=== PATIENT | male | born 1955 | race Caucasian/White ===

== ENCOUNTER 2016-02-23 08:50 | Outpatient (CLI) | payer BC | END 2016-02-23 08:51 | disposition home or self-care (01) | DX: I10 Essential (primary) hypertension (principal); Z12.5 Encounter for screening for malignant neoplasm of prostate; I73.9 Peripheral vascular disease, unspecified ==

== ENCOUNTER 2016-02-26 09:02 | Outpatient (CLI) | payer BC | END 2016-02-26 09:03 | disposition home or self-care (01) | DX: R94.5 Abnormal results of liver function studies (principal) ==

== ENCOUNTER 2019-02-23 15:55 | Outpatient (CLI) | payer BC ==
--- NOTE | 2019-02-23 16:56 | XRAY Report ---
Reason: LOW BACK PAIN CHRONIC Procedure Date: 02/23/2019 Accession Number: [id number] / [id number] Procedure: XRN - Lumbar Spine 2 View CPT Code: Final Report FULL RESULT: EXAM: LUMBOSACRAL SPINE RADIOGRAPHY EXAM DATE: 02/23/2019 04:12 PM. CLINICAL HISTORY: LOW BACK PAIN CHRONIC. COMPARISONS: None. TECHNIQUE: 3 views. FINDINGS: Alignment: Normal. No spondylolisthesis or scoliosis. Bones: Five [id number] lumbar vertebral bodies are present. No fractures or bone lesions. Disks: L1-L2 osteophyte. L2-L3 osteophyte, subchondral sclerosis, disk space narrowing and vacuum disk phenomena. 3 L4, L4-L5 osteophyte L5-S1 osteophyte, subchondral sclerosis, disk space narrowing and vacuum disk phenomena. Facets: L5-S1 facet arthropathy Sacroiliac Joints: Unremarkable. Soft Tissues: Vascular calcifications. The visualized bowel gas pattern is normal. IMPRESSION: Moderate to severe degenerative changes RADIA
== END 2019-02-23 15:56 | disposition home or self-care (01) ==
LOC: DI.N 15:55
PROVIDERS: ATTEND Family Medicine
DX: M47.817 Spondylosis without myelopathy or radiculopathy, lumbosacral region (principal); M51.36 Other intervertebral disc degeneration, lumbar region; M51.37 Other intervertebral disc degeneration, lumbosacral region
CPT/HCPCS: 72100

== ENCOUNTER → 2019-10-19 | Outpatient (CLI) | payer BC, OTHER ==
[2019-10-19 18:20] LABS: BASOPHILS # (AUTO) 0.1 10^3/uL (0.0-0.1); BASOPHILS % (AUTO) 1.1 %; EOSINOPHILS # (AUTO) 0.2 10^3/uL (0.0-0.7); EOSINOPHILS % (AUTO) 2.3 %; HGB - HEMOGLOBIN 13.2 g/dL (14.0-18.0); LYMPHOCYTES # (AUTO) 1.1 10^3/uL (1.5-3.5); LYMPHOCYTES % (AUTO) 13.5 %; MEAN CORPUSCULAR HEMOGLOBIN 30.8 pg (27.0-31.0); MEAN CORPUSCULAR VOLUME 96.3 fL (80.0-94.0); MEAN PLATELET VOLUME 11.4 fL (7.4-11.4); MONOCYTES # (AUTO) 0.8 10^3/uL (0.0-1.0); MONOCYTES % (AUTO) 10.2 %; NEUTROPHILS % (AUTO) 72.5 %; PLT - PLATELET COUNT 358 10^3/uL (130-450); RED BLOOD COUNT 4.28 10^6/uL (4.70-6.10); RED CELL DISTRIBUTION WIDTH 14.2 % (12.0-15.0); WHITE BLOOD COUNT 8.2 x10^3/uL (4.8-10.8)
[2019-10-19 19:06] LABS: ALBUMIN 3.2 g/dL (3.2-5.5); ALBUMIN/GLOBULIN RATIO 0.9 (1.0-2.2); ALKALINE PHOSPHATASE 107 IU/L (42-121); ALT ALANINE AMINOTRANSFERASE 75 IU/L (10-60); AST ASPARTATE AMINOTRANSFERASE 80 IU/L (10-42); BILIRUBIN,TOTAL 0.5 mg/dL (0.2-1.0); BUN - BLOOD UREA NITROGEN < 5 mg/dL (6-20); CARBON DIOXIDE - CO2 23 mmol/L (21-32); CHLORIDE 95 mmol/L (101-111); CHOL/HDL RATIO 1.6 (<5.0); CHOLESTEROL 121 mg/dL; CREATININE 0.5 mg/dL (0.6-1.2); GLUCOSE 150 mg/dL (70-100); HDL CHOLESTEROL 77 mg/dL; LDL CHOLESTEROL,CALCULATED 35 mg/dL; LDL/HDL RATIO 0.5 (<3.6); SODIUM 126 mmol/L (135-145); TOTAL PROTEIN 6.8 g/dL (6.7-8.2); VLDL CHOLESTEROL 9 mg/dL
== END ==
LOC: LAB.WCP 08:00
PROVIDERS: ATTEND Family Medicine
DX: E78.5 Hyperlipidemia, unspecified (principal); Z12.5 Encounter for screening for malignant neoplasm of prostate; I10 Essential (primary) hypertension
CPT/HCPCS: 36415; 80053; 80061; 83721; 84153; 84443; 85025

== ENCOUNTER 2020-09-11 11:31 | Outpatient (CLI) | payer BC, OTHER ==
[2020-09-11 18:11] LABS: ALBUMIN 2.3 g/dL (3.2-5.5); ALBUMIN/GLOBULIN RATIO 0.5 (1.0-2.2); BILIRUBIN,TOTAL 0.3 mg/dL (0.2-1.0); CREATININE 0.6 mg/dL (0.6-1.2); TOTAL PROTEIN 6.6 g/dL (6.7-8.2)
[2020-09-11 18:37] LABS: CALCIUM 8.8 mg/dL (8.5-10.3); POTASSIUM 4.1 mmol/L (3.5-5.0)
[2020-09-11 19:01] LABS: BASOPHILS # (AUTO) 0.1 10^3/uL (0.0-0.1); BASOPHILS % (AUTO) 1.1 %; EOSINOPHILS # (AUTO) 0.2 10^3/uL (0.0-0.7); EOSINOPHILS % (AUTO) 2.7 %; HCT - HEMATOCRIT 26.4 % (42.0-52.0); LYMPHOCYTES # (AUTO) 0.4 10^3/uL (1.5-3.5); LYMPHOCYTES % (AUTO) 4.7 %; MEAN CORPUSCULAR HGB CONC 30.3 g/dL (32.0-36.0); MEAN CORPUSCULAR VOLUME 92.3 fL (80.0-94.0); MEAN PLATELET VOLUME 9.6 fL (7.4-11.4); MONOCYTES % (AUTO) 11.4 %; NEUTROPHILS % (AUTO) 79.4 %; RED BLOOD COUNT 2.86 10^6/uL (4.70-6.10); RED CELL DISTRIBUTION WIDTH 15.4 % (12.0-15.0); WHITE BLOOD COUNT 8.9 x10^3/uL (4.8-10.8)
[2020-09-11 19:10] LABS: PLT - PLATELET COUNT 802 10^3/uL (130-450)
[2020-09-11 19:30] LABS: PLATELET ESTIMATE, MANUAL INCREASED (>450,000) (NORMAL); PLATELET MORPHOLOGY NORMAL APPEARANCE (NORMAL)
== END 2020-09-11 11:32 | disposition home or self-care (01) ==
LOC: LAB.N 11:31
PROVIDERS: ATTEND Physician Assistant Medical
DX: J44.9 Chronic obstructive pulmonary disease, unspecified (principal)
CPT/HCPCS: 36415; 80053; 85025

== ENCOUNTER 2020-09-12 16:23 | Outpatient (CLI) | payer BC, OTHER ==
--- NOTE | 2020-09-12 17:00 | XRAY Report ---
PROCEDURE: Chest 2 View X-Ray INDICATIONS: COPD TECHNIQUE: 2 view(s) of the chest. COMPARISON: None. FINDINGS: Surgical changes and devices: None. Lungs and pleura: No pleural effusions or pneumothorax. Lungs are abnormal with an interstitial pro minence present bilaterally, chronicity uncertain.. Mediastinum: Mediastinal contours are normal. Heart size is normal. Bones and chest wall: No suspicious bony abnormalities. Soft tissues appear unremarkable. IMPRESSION: Comparison chest plain films are not available for review. The interstitial pattern prom inence within the lungs bilaterally, perhaps slightly greater on the right than the left, could be re lated to prior chronic lung disease but opportunistic infection and atypical/viral pneumonia remains a potential cause. Reviewed by: Eliu Cabrera MD on 09/12/2020 4:58 PM PDT Approved by: Eliu Cabrera MD on 09/12/2020 4:58 PM PDT Station ID: [id number]
== END 2020-09-12 16:24 | disposition home or self-care (01) ==
LOC: DI.N 16:23
PROVIDERS: ATTEND Physician Assistant Medical
DX: R91.8 Other nonspecific abnormal finding of lung field (principal)

== ENCOUNTER 2020-10-17 11:55 | Outpatient (CLI) | payer BC ==
--- NOTE | 2020-10-17 12:32 | XRAY Report ---
PROCEDURE: Chest 2 View X-Ray INDICATIONS: SUSPECT RIGHT SIDE INFILTRATE TECHNIQUE: 2 view(s) of the chest. COMPARISON: CT lung biopsy 10/17/2020 FINDINGS: Surgical changes and devices: None. Lungs and pleura: No definitive pneumothorax is identified. Chronic interstitial changes are present. Mediastinum: Mediastinal contours are normal. Heart size is normal. Bones and chest wall: No suspicious bony abnormalities. Soft tissues appear unremarkable. IMPRESSION: 1. No definitive pneumothorax. It is noted a very trace pneumothorax was noted on CT at conclusion of lung biopsy. Reviewed by: Valentina Shi MD on 10/17/2020 12:30 PM PDT Approved by: Valentina Shi MD on 10/17/2020 12:30 PM PDT Station ID: [id number]
== END 2020-10-17 11:56 | disposition home or self-care (01) ==
LOC: DI.N 11:55
PROVIDERS: ATTEND Family Medicine
DX: C44.92 Squamous cell carcinoma of skin, unspecified (principal); R06.00 Dyspnea, unspecified

== ENCOUNTER 2020-10-22 07:22 | Day surgery (SDC) | payer BC ==
[~2020-10-22 07:22] MED LIST: CEFAZOLIN SODIUM IN 0.9 % NACL 2 GM/100 ML BAG IV ONE
[2020-10-22] MEDS ORDERED: BUPIVACAINE 0.25% PF 30 ML VIAL ONE (07:33)
[2020-10-22] MEDS ORDERED: LACTATED RINGERS 1,000 ML IV ONE ×2 (07:48→11:29)
--- NOTE | 2020-10-22 08:32 | ANESTHESIA ---
Pre-Anesthesia VS, & Labs - Diagnosis metastatic squamous cell cancer - Procedure port placement Vital Signs: Temp Pulse Resp BP Pulse Ox 36.5 C 113 H 18 141/84 H 98 10/22/20 07:54 10/22/20 07:54 10/22/20 07:54 10/22/20 07:54 10/22/20 07:54 Height: 6 ft 1 in Weight (kg): 66.4 kg Body Mass Index: 19.3 BMI Classification: Healthy weight - NPO >8 hours Home Medications and Allergies Home Medications: Ambulatory Orders predniSONE [Deltasone] 3 tab ORAL DAILY 10/22/20 Aspirin Chewable [[place] Aspirin] 1 tab PO DAILY 10/08/20 Atorvastatin [Lipitor] 40 mg PO DAILY PM 10/08/20 Losartan [Cozaar] 25 mg PO DAILY 10/08/20 Metoprolol Succinate [Toprol Xl] 25 mg PO DAILY 10/08/20 Ticagrelor [Brilinta] 90 mg PO BID 10/08/20 predniSONE [Deltasone] 3 tab ORAL DAILY 10/22/20 Allergies/Adverse Reactions: Allergies Allergy/AdvReac Type Severity Reaction Status Date / Time No Known Drug Allergies Allergy Verified 10/16/20 12:25 Anes History & Medical History - Anesthetic History Anesthesia Complications: reports: No previous complications - Medical History Cardiovascular: reports: Hypertension, High cholesterol, Coronary artery disease, Peripheral Vascular Disease, Angina, Other (Stent placement July 2020) Pulmonary: reports: COPD, Shortness of breath Gastrointestinal: reports: None Urinary: reports: None Neuro: reports: None Musculoskeletal: reports: Chronic back pain Endocrine/Autoimmune: reports: None Blood Disorders: reports: None Skin: reports: None Smoking Status: Current every day smoker Psychosocial: reports: Alcohol (drinks 6 beer daily) History of Cancer?: Yes - Surgical History Cardiothoracic: reports: Coronary stent, Cardiac catheterization, Fempop bypass Orthopedic: reports: Other Exam General: Alert, Oriented x3, Cooperative, No acute distress Dental: Poor dentition Mouth Openin Fingerbreadth Neck Mobility: Normal Mallampati classification: II Thyromental Distance: 4-6 cm Respiratory: Decreased breath sounds (on right), Wheezing (inspiratory and expiratory Right>Left. Diminished right breath sounds) Cardiovascular: Regular rate, Normal S1, Normal S2, No murmurs Mental/Cognitive Status: Alert/Oriented X3, Normal for patient Plan Anesthesia Type: MAC Consent for Procedure(s) Verified and Reviewed: Yes Code Status: Attempt Resuscitation ASA classification: 4-Incapacitating disease Is this case an emergency?: No
[2020-10-22] MEDS ORDERED: LIDOCAINE 1% 50 ML MDV ONE (10:20)
[2020-10-22] MEDS ORDERED: HYDROCORTISONE SUCCINATE 100 MG/2 ML VIAL ONE (10:20)
[2020-10-22] MEDS ORDERED: MIDAZOLAM 2 MG/2 ML VIAL ONE (10:21)
[2020-10-22] MEDS ORDERED: DEXMEDETOMIDINE 200 MCG/2 ML VIAL ONE (10:25)
--- NOTE | 2020-10-22 10:29 | HISTORY & PHYSICAL EXAMINATION ---
Chief Complaint - Chief Complaint Chief Complaint: cancer History of Present Illness - History Obtained From Records Reviewed: yes History obtained from: pt Exam Limitations: none - History of Present Illness HPI Comment/Other: Recently diagnosed with metastatic cancer. Chemotherapy and port has been recommended History - Past Medical History Cardiovascular: reports: Hypertension, High cholesterol, Coronary artery disease, Peripheral Vascular Disease, Angina, Other (Stent placement July 2020) Respiratory: reports: COPD, Shortness of breath Neuro: reports: None Endocrine/Autoimmune: reports: None GI: reports: None : reports: None HEENT: reports: None Psych: reports: None Musculoskeletal: reports: Chronic back pain Derm: reports: None MRSA Hx?: No - Past Surgical History General: reports: Other Ortho: reports: Other Cardiovascular: reports: Coronary stent, Cardiac catheterization, Fempop bypass Meds/Allgy - Home Medications Home Medications: Ambulatory Orders Medication Instructions Recorded Confirmed Aspirin Chewable [[facility] [place] 1 tab PO DAILY 10/08/20 10/16/20 Aspirin] Atorvastatin [Lipitor] 40 mg PO DAILY PM 10/08/20 10/16/20 Losartan [Cozaar] 25 mg PO DAILY 10/08/20 10/22/20 Metoprolol Succinate [Toprol Xl] 25 mg PO DAILY 10/08/20 10/22/20 Ticagrelor [Brilinta] 90 mg PO BID 10/08/20 10/16/20 Ondansetron HCl [Zofran] 4 mg PO Q6HR PRN #30 tab 10/14/20 10/16/20 Prochlorperazine Maleate 10 mg PO Q6HR PRN #30 tab 10/14/20 10/16/20 [Compazine] dexAMETHasone [Decadron] 8 mg PO UD #18 tablet 10/14/20 10/16/20 predniSONE [Deltasone] 3 tab ORAL DAILY 10/22/20 10/22/20 - Allergies Allergies/Adverse Reactions: Allergies Allergy/AdvReac Type Severity Reaction Status Date / Time No Known Drug Allergies Allergy Verified 10/16/20 12:25 Review of Systems - Other Findings Other Findings: 10 pt ros as above otherwise unremarkable Exam - Vital Signs Reviewed Vital Signs: Yes Vital Signs: Vital Signs x48h Temp Pulse Resp BP Pulse Ox 10/22/20 07:54 36.5 C 113 H 18 141/84 H 98 - Physical Exam General Appearance: positive: No acute distress, Alert Eyes Bilateral: positive: PERRL, EOMI ENT: positive: No signs of dehydration Neck: positive: No JVD Respiratory: positive: No respiratory distress, Other (diminished) Cardiovascular: positive: Regular rate & rhythm Abdomen: positive: No distention Neurologic/Psychiatric: positive: Oriented x3 Conclusion/Plan - Problem List (1) Metastatic squamous cell carcinoma Conclusion/Plan: Plan port placement. parq held and consent obtained
[2020-10-22] MEDS ORDERED: LIDOCAINE 1% 50 ML MDV SUBQ ONE ×2 (10:58)
[2020-10-22] MEDS ORDERED: BUPIVACAINE 0.25% PF 30 ML VIAL SUBQ ONE ×2 (10:58)
[2020-10-22] MEDS ORDERED: fentaNYL 100 MCG/2 ML VIAL ONE (11:04)
[2020-10-22] MEDS ORDERED: HYDROcod/ACETAM 5/325 MG TABLET PO PRN (11:26)
--- NOTE | 2020-10-22 11:32 | OPERATIVE REPORT ---
Operative Report - General Procedure Date: 10/22/20 Planned Procedure: left subclavian power port placement Pre-Op Diagnosis: metastatic squamous cell carcinoma Procedure Performed: left subclavian power port placement Post Op Diagnosis: same - Procedure Note Primary Surgeon: anca tay Anesthesia Technique: Local, MAC Estimated Blood Loss (mL): 5 Drain/Tube Type: Other (none) Indications: need for chemotherapy Findings: good placement with tip at top of heart. good flush and flow Complications: none - Other Other Information/Narrative: The patient was properly identified brought to the operating room and placed in supine position. Monitored anesthesia care was given as well as IV sedation. A towel roll was placed under the upper back. The patient was prepped and draped in a sterile fashion and given preoperative antibiotics. Local anesthetic was given. The left subclavian vein was easily accessed first pass with a needle. Guide wire placed and position confirmed. A subcutaneous pocket on the left upper chest was created measuring approximately 2-1/2 cm. Portacatheter tubing was then placed subcutaneous up to the venous access point. The portacatheter tubing was then easily placed with the use of a dilator peel-away sheath. The tubing was aspirated and flushed with saline. Under fluoroscopic guidance the tubing was pulled back to the junction of the atrium and the superior vena cava. The portacatheter aspirated and flushed easily assuring good position. The portacatheter was then cut to size and further assembled. The port was secured to subcutaneous tissue with 2 interrupted 4-0 Prolene sutures. The port again was aspirated and flushed now with heparin. Buried interrupted subdermal 3-0 Vicryl sutures were then placed. Skin was closed with buried interrupted and running 4-0 Monocryl subcuticular suture. Dressing was applied. The patient tolerated the procedure well was awakened and brought to recovery in good condition.
[2020-10-22 12:09] VITALS: BP 110/53
--- NOTE | 2020-10-22 13:57 | XRAY Report ---
PROCEDURE: OR Port-A-Cath INDICATIONS: PORT PLACEMENT TECHNIQUE: Single intraoperative spot fluoroscopic image of the chest. COMPARISON: Chest radiographs 10/17/2020 FINDINGS: A single intraoperative spot fluoroscopic image demonstrates a left-sided central venous catheter wit h catheter tip projecting over the superior cavoatrial junction. Atherosclerotic calcifications are s een in the aorta. IMPRESSION: Left-sided central venous catheter is seen with tip projecting over the superior cavoatrial junction. Reviewed by: Omi Denny MD on 10/22/2020 1:55 PM PDT Approved by: Omi Denny MD on 10/22/2020 1:55 PM PDT Station ID: [id number]
--- NOTE | 2020-10-22 16:35 | ANESTHESIA POST OP EVALUATION ---
Anesthesia Post Eval - Post Anesthesia Eval Vitals: Last Vital Signs Temp 36.5 C 10/22/20 12:08 Pulse 93 10/22/20 12:08 Resp 16 10/22/20 12:08 BP 110/53 L 10/22/20 12:08 Pulse Ox 93 10/22/20 12:08 CV Function Including HR & BP: Stable Pain Control: Satisfactory Nausea & Vomiting: Negative Mental Status: Baseline Respiratory Status: Airway Patent Hydration Status: Satisfactory Anesthesia Complications: None
== END 2020-10-22 07:23 | disposition home or self-care (01) ==
LOC: SDS 07:22
PROVIDERS: ATTEND Surgery
DX: C44.92 Squamous cell carcinoma of skin, unspecified (principal); J44.9 Chronic obstructive pulmonary disease, unspecified; Z95.5 Presence of coronary angioplasty implant and graft; I25.10 Atherosclerotic heart disease of native coronary artery without angina pectoris; I73.9 Peripheral vascular disease, unspecified; Z20.822 Contact with and (suspected) exposure to COVID-19; F17.200 Nicotine dependence, unspecified, uncomplicated
CPT/HCPCS: 36561; 87635; C1788; J0690; J7120

== ENCOUNTER 2020-11-05 11:05 | Outpatient (CLI) | payer BC, OTHER ==
--- NOTE | 2020-11-05 17:29 | CONSULTATION NOTE ---
Palliative Care Consultation - Referral Referring Provider: Dr. 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 He finally had to retire secondary to concern for safety issues. He has not had much medical care up to this point in time, and started for work-up. Unfortunately he was found to need a cardiac stent placement in his work-up, before he could move forward with his femoral endarterectomy on 08/2020. During his operation he had suspicious lymphadenopathy which was biopsied and found to be positive for squamous cell carcinoma and subsequent work-up he had a PET scan and 09/15/2020 with noted most likely distal esophageal primary, in addition to lung findings suspicious for lymphangitic spread in lungs as well as retroperitoneal lymphadenopathy. Patient has since diagnosis had increased shortness of breath, he has been on steroids in the context of this, with some relief. He does not have a cough, but limited activity tolerance. He does have abdominal fullness and tenderness, early satiety, denies difficulty with swallowing. Patient denies pain other than mild stomach discomfort. He does understand the seriousness of his illness, and that treatment is palliative in nature. He has received his first round of FOLFOX starting 10/23. Unfortunately today he presents with the hemoglobin of 7.0 and hematocrit 23.1. With suspicion for possible bleeding from tumor site. He is on Brilinta secondary to stent placement. Patient does have anxiety, intermittent constipation, and low activity tolerance. Patient continues to smoke about a pack a day, reports this is actually down from 3 packs. He continues to drink about a sixpack of beer daily. On examination his breath sounds are diminished throughout, no wheezes, his O2 sats are 99% at rest. He does have some abdominal distention tender to palpation. He has well-healed surgical scar R mid abdominal, his groin incisions does have some firmness and scar tissue swelling at the sites. He does have mild tenderness with this. Patient has minimal social support, he is been in contact with one of his brothers, his ex-girlfriend Delia has been providing support and transportation, and he is living with a friend Amanda. He is due to transition to Medicare, and is concerned about insurance issues. Palliative care introduced regarding providing support for symptom management, anticipatory guidance, and advanced care planning.Will introduce secondary social studies teacher for resources support as well. Medical/Surgical History - Past Medical History Cardiovascular: reports: Hypertension, High cholesterol, Coronary artery dise ase, Peripheral Vascular Disease, Angina Respiratory: reports: COPD, Shortness of breath Neuro: None Endocrine/Autoimmune: reports: None GI: reports: GERD : reports: None HEENT: reports: None Psych: reports: Anxiety Musculoskeletal: reports: Chronic back pain Derm: reports: None MRSA Hx?: No - Past Surgical History General: reports: Other (portacath placed 11/04) Ortho: reports: Other Cardiovascular: reports: Coronary stent, Cardiac catheterization, Fempop bypass - Substance History Use: Uses substance without health or social issues: Tobacco (smokes 1 pack a day down from 1-2), Alcohol (drinks a 6 pack beer daily), Cocaine (hx) Social History - Living Situation Living arrangement: Other Living Situation: With friend(s) Support System: [place], does have friends in the area. Currently is staying with Amanda, and being supported by Delia and ex-girlfriend. Will need more concrete care plan for long-term planning, short-term may be experiencing some transportation issues. Will enlist help of palliative care secondary social studies teacher to work alongside with palliative care team. Was in the [employer] 3 years when young Family History - Family History Family History: Mother: , Mental Illness (suicide), Father: , Alcoholism, Cancer (possible not sure), Sister: Alive and Well (2 sisters 2 brothers one with ALS), Brother: Alive and Well Medications/Allergies - Medications Home Medications: Ambulatory Orders Medication Instructions Recorded Confirmed Aspirin Chewable [[facility] 1 tab PO DAILY 10/08/20 11/05/20 Aspirin] Atorvastatin [Lipitor] 40 mg PO DAILY PM 10/08/20 11/05/20 Losartan [Cozaar] 25 mg PO DAILY 10/08/20 11/05/20 Metoprolol Succinate [Toprol Xl] 25 mg PO DAILY 10/08/20 11/05/20 Ticagrelor [Brilinta] 90 mg PO BID 10/08/20 11/05/20 Ondansetron HCl [Zofran] 4 mg PO Q6HR PRN #30 tab 10/14/20 10/16/20 Prochlorperazine Maleate 10 mg PO Q6HR PRN #30 tab 10/14/20 10/16/20 [Compazine] dexAMETHasone [Decadron] 8 mg PO UD #18 tablet 10/14/20 10/16/20 HYDROcod/ACETAM 5/325 [[place] 5/325] 1 each PO Q6H PRN #30 tablet 10/22/20 11/05/20 predniSONE [Deltasone] 3 tab ORAL DAILY 10/22/20 11/05/20 - Allergies Allergies/Adverse Reactions: Allergies Allergy/AdvReac Type Severity Reaction Status Date / Time No Known Drug Allergies Allergy Verified 10/16/20 12:25 Review of Systems - Constitutional Constitutional: reports: Fatigue, Weakness, Poor appetite, Weight loss (68 kg; reports always thin but usually 165). denies: Fever, Chills - Cardiovascular Cardiovascular: reports: Palpitations, Exertional dyspnea, Decr. exercise tolerance - Respiratory Respiratory: reports: SOB at rest, SOB with exertion - Gastrointestinal Gastrointestinal: reports: Constipation, Reflux/heartburn, Bloating, Poor appetite, Early satiety. denies: Nausea - Musculoskeletal Musculoskeletal: reports: Back pain, Muscle aches, Stiffness, Muscle weakness - Integumentary Integumentary: reports: Dryness - Neurological Neurological: reports: General weakness - Psychiatric Psychiatric: reports: Anxiety. denies: Depression - Hematologic/Lymphatic Hematologic/Lymph: reports: Anemia (getting iron transfusion; 2 units [facility] tomorrow) - All Other Systems All Other Systems: reports: Reviewed and negative Physical Exam - Vital Signs Pulse Rate: 100 Respiratory Rate: 20 O2 Saturation: 99 Blood Pressure: 128/77 - Physical Exam General Appearance: positive: No acute distress, Alert, Anxious Eyes Bilateral: positive: Normal inspection ENT: positive: Other (mask on) Neck: positive: Trachea midline Cardiovascular: positive: Regular rate & rhythm Respiratory: positive: Diminished throughout. 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 He has only been able to walk a few feet before getting winded. He has not driven for a couple months now, as he is worried about ability to manage. He reports bathing is quite onerous, he eats takeout or friend fix or brings meals. Patient is quite sedentary, and reports feeling quite bored. - Palliative Care Discussion: Patient does understand the seriousness of his illness, he is hoping both for quality and quantity of time. He does seem to understand the complexity of his situation, though will need to explore further patient's medication adherence. Patient has minimal community support, does report he has spoken to his brother about his diagnosis. Introduced the need for DURABLE P[employer] PREPARATION SUPERVISOR for healthcare, particularly in the context of his health history and concern for complications or sequela. Provided simple DPOA H form. Patient's short-term goals, are to see how he responds to treatment, he is hoping to feel somewhat better and be more active. He is quite sedentary and "bored" given his previous lifestyle. Patient is quite reflective he reports "we will sometime", and actually is surprised he is still here given his lifestyle previously, he reports he thought he was going to be get 35 years ago so is pleasantly surprised. Results - Lab Results Lab results reviewed: Yes Impression and Recommendations - Palliative Care Impression: This is a 64-year-old gentleman who has been diagnosed with his squamous cell carcinoma metastatic disease likely esophageal primary. He has started his FOLFOX 10/23/20 with delay today of a week, presents today with acute anemia, fatigue, anorexia, and breathlessness. Patient does have underlying anxiety, I have concern for social support for long-term planning, but is quite open to working with palliative care for both short-term and long-term goals. Palliative care to provide support for symptom management and advanced care planning. Recommendations/Counseling Done: 1. Anemia. This is multifactorial, also concerned about bleeding. Patient does have some abdominal discomfort, will go ahead and start him on some omeprazole 40 mg daily in the a.m., with possibility to consider Carafate in the future as well. Oncology note has him being referred possibly for radiation for control of bleeding. They will continue to be monitoring. 2. Weight loss. Patient has fluctuating anorexia, as well as symptoms of early satiety and abdominal discomfort. Denies any nausea. Patient has initiated daily Ensure, encouraged to increase to 2 times a day. 3. Constipation. Patient experiencing intermittent constipation, with increased abdominal discomfort. Counseling provided and encouraged to do MiraLAX half capful daily with the goal to have a daily soft BM. 4. Anxiety. Discussed with patient's long-term feelings of anxiety, patient with situational anxiety and depression. We did discuss possible medication to help, currently would like to hold off. Will make a referral to medical palliative care secondary social studies teacher for evaluation and screening for anxiety/depression and resources. 5. Dyspnea. This is multifactorial, patient has documented lymphangitic spread in the lungs, long-term and continuous smoker, hemoglobin of 7.0. We will continue to monitor, patient reports he is currently taking increased steroids for this, with some relief. Counseling provided regarding the role of his current counts on his experience with dyspnea, hopefully will feel better after transfusion tomorrow. 6. Advanced care planning. Initiated conversation regarding patient's short and long-term goals. Patient does understand the seriousness of his illness, has minimal social support and concerns for resource management. Introduced the need for DPOA and provided simple form, will continue to work with patient on advanced care planning and long-term goals. 60 Review of oncology notes, labs, scans, [id number] for counseling for symptom management and introduction advanced care planning. Palliative care to follow alongside patient for symptom management goals of care and anticipatory guidance.
== END 2020-11-05 11:06 | disposition home or self-care (01) ==
LOC: PC 11:05
PROVIDERS: ATTEND Nurse Practitioner Adult Health
DX: Z51.5 Encounter for palliative care (principal); D63.0 Anemia in neoplastic disease; R06.02 Shortness of breath; R63.4 Abnormal weight loss; R53.83 Other fatigue; R63.0 Anorexia; R68.81 Early satiety; K59.00 Constipation, unspecified; F41.9 Anxiety disorder, unspecified; F32.9 Major depressive disorder, single episode, unspecified; R10.9 Unspecified abdominal pain; R14.0 Abdominal distension (gaseous); I10 Essential (primary) hypertension; I25.119 Atherosclerotic heart disease of native coronary artery with unspecified angina pectoris; I73.9 Peripheral vascular disease, unspecified; F17.210 Nicotine dependence, cigarettes, uncomplicated; J44.9 Chronic obstructive pulmonary disease, unspecified; C78.02 Secondary malignant neoplasm of left lung; C78.01 Secondary malignant neoplasm of right lung; C80.1 Malignant (primary) neoplasm, unspecified; Z79.52 Long term (current) use of systemic steroids; Z79.899 Other long term (current) drug therapy; Z95.828 Presence of other vascular implants and grafts; Z95.5 Presence of coronary angioplasty implant and graft; Z72.89 Other problems related to lifestyle; Z60.8 Other problems related to social environment
CPT/HCPCS: 99205

== ENCOUNTER 2020-11-14 15:04 | Outpatient (CLI) | payer BC, OTHER ==
--- NOTE | 2020-11-14 17:19 | CONSULTATION NOTE ---
Palliative Care Follow Up - Referral Referring Provider: Dr. Omi Baltazar Time of Visit: 1520 30 Referral setting: [facility] – [place] Referral Reason: Abdominal Pain/FTT/SCC of Esophagus/Goals of Care - Information Sources Records reviewed: Previous records reviewed History/Review of Systems obtained from: Patient Exam limitations: Clinical condition (patient tangential; difficulty retaining info) - History of Present Illness Update Brief HPI Update: Please see consult 11/05 for more complete HPI. This is a 64-year-old gentleman who has a recent diagnosis squamous cell carcinoma of the esophagus, reports he has worsening pain in his epigastric area, before and after eating, that radiates through to the back. He reports his most significant relief is actually when he is taking the dexamethasone and/or prednisone. He has early satiety, abdominal fullness and tenderness, but denies any difficulty with swallowing. He is just having difficulty eating as he is feeling poorly. He reports he continues to struggle with constipation, has had no trouble with diarrhea despite his FOLFOX. He is here to have his 5-FU removed. He does have high anxiety, low activity tolerance, continues to smoke about a pack a day. He does report his intake of beer which is usually minimum a sixpack has decreased dramatically, and is doing better with protein drinks. He had started the omeprazole, has seen the social work job titles but does admit he has difficulty tracking will need to meet with Delia. Patient is feeling quite overwhelmed with his ongoing failure to thrive. Past Medical History: Hypertension, high cholesterol, CAD, peripheral vascular disease, angina, COPD, GERD, anxiety, chronic back pain, coronary stent placement, cardiac catheterization, femoropopliteal bypass Social History - Living Situation Living arrangement: Other Living Situation: With friend(s) Support System: Patient has been at [facility] for 26 years, does have friends in the area. Currently staying with Amanda who is connected through an old girlfriend, and is being supported by Delia whom he does not live with and is an ex-girlfriend. He is going to need a more concrete plan for long-term planning, and short-term is experiencing some transportation issues. Patient was in the [employer] 3 years when he was young. He is coming up on at a care age, and will need assistance transitioning. Medications/Allergies - Medications Home Medications: Ambulatory Orders Medication Instructions Recorded Confirmed Aspirin Chewable [[place] 1 tab PO DAILY 10/08/20 11/14/20 Aspirin] Atorvastatin [Lipitor] 40 mg PO DAILY PM 10/08/20 11/14/20 Losartan [Cozaar] 25 mg PO DAILY 10/08/20 11/14/20 Metoprolol Succinate [Toprol Xl] 25 mg PO DAILY 10/08/20 11/14/20 Ticagrelor [Brilinta] 90 mg PO BID 10/08/20 11/14/20 Ondansetron HCl [Zofran] 4 mg PO Q6HR PRN #30 tab 10/14/20 11/14/20 Prochlorperazine Maleate 10 mg PO Q6HR PRN #30 tab 10/14/20 11/14/20 [Compazine] HYDROcod/ACETAM 5/325 [[place] 5/325] 1 each PO Q6H PRN #30 tablet 10/22/20 11/14/20 Omeprazole 40 mg PO BID MDD x 1 week; then 11/14/20 11/14/20 daily dexAMETHasone [Decadron] 4 mg PO DAILY 11/14/20 11/14/20 - Allergies Allergies/Adverse Reactions: Allergies Allergy/AdvReac Type Severity Reaction Status Date / Time No Known Drug Allergies Allergy Verified 10/16/20 12:25 Review of Systems - Constitutional Constitutional: reports: Fatigue (worsening), Weakness, Poor appetite, Weight loss (68 kg; reports always thin but usually 165). denies: Fever, Chills - Eyes Eyes: reports: Vision loss - Ears, Nose & Throat Ears, Nose & Throat: reports: Dry mouth. denies: Mouth lesions - Cardiovascular Cardiovascular: reports: Palpitations, Exertional dyspnea, Decr. exercise tolerance - Respiratory Respiratory: reports: SOB at rest, SOB with exertion - Gastrointestinal Gastrointestinal: reports: Constipation (hard stool yesterday), Reflux/heartburn, Bloating, Poor appetite, Early satiety. denies: Nausea - Musculoskeletal Musculoskeletal: reports: Back pain, Muscle aches, Stiffness, Muscle weakness - Integumentary Integumentary: reports: Dryness - Neurological Neurological: reports: General weakness - Psychiatric Psychiatric: reports: Anxiety. denies: Depression - Hematologic/Lymphatic Hematologic/Lymph: reports: Anemia (up to 10.9) - All Other Systems All Other Systems: reports: Reviewed and negative Physical Exam - Physical Exam General Appearance: positive: No acute distress, Alert, Anxious Eyes Bilateral: positive: Normal inspection ENT: positive: Other (mask on) Neck: positive: Trachea midline Cardiovascular: positive: Regular rate & rhythm Respiratory: positive: No respiratory distress Abdomen: positive: Tenderness, Distended Skin: positive: Dryness, Other (scars healed) Extremities: positive: No pedal edema Neurologic/Psychiatric: positive: Oriented x3, Mood/affect nml, Flat affect Palliative Care - POLST Patient has POLST: No POLST Status: Full Code Pain: Pain worsening, Location (mid abdominal; unclear what helps), Severity (04/23 occ use of hydrocodone; avg about one daily; felt best on sterioids) Tiredness/Fatigue: Moderate (4-6) Nausea: None Dyspnea: Mild (1-3) Depression: Mild (1-3) Anxiety: Moderate (4-6) Feelings of wellbeing/Perceived Quality of Life: Poor, Worsening Sleep: Sleeps poorly Constipation: Yes, Unmanaged Performance Status: Patient taking just short naps, only able to sleep 2 to 3 hours at a time. Is finding all of this somewhat overwhelming. He is also not used to being bored. Currently is able to manage his ADLs, but is only able to ambulate short distances. - Palliative Care Discussion: Patient does admit to being overwhelmed, is feeling somewhat stressed to co ntinues to have high symptom burden, and difficulty eating. He did meet with the palliative medical grade shoemaker yesterday, reports that it was very difficult and most likely be more beneficial if they had there. He does admit to having difficulty following the conversation and absorbing information. I did speak to Delia quickly on the phone, with a reminder to both of them I do write down the instructions for any medication changes. Patient does need to pick a DPOA, has not followed through though this was revisited yesterday. 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 He is on FOLFOX, which was delayed because of acute anemia, he did receive iron transfusions and 2 units packed red blood cells with improvement of both hemoglobin and symptom burden. Patient does have underlying anxiety, Worsening abdominal pain, and is feeling overwhelmed. Palliative care to provide support for symptom management advance care planning. Recommendations/Counseling Done: 1. Abdominal pain. Suspect this is multifactorial, including related to tumor, he perceives it most relief came from the dexamethasone. We will go ahead given his poor appetite, dyspnea, and pain will continue dexamethasone 4 mg for the short-term. He does have hydrocodone 5 mg / 325 mg, does not perceive this provides much relief. We will go ahead and increase the omeprazole to twice daily for 1 week. Patient may benefit from Carafate, if patient's hemoglobin drops may also need to stop blood thinner. 2. Constipation. Patient continues with intermittent constipation, instructed to take a full capful of MiraLAX or twice daily. With the goal for soft daily BM suspect this is adding to his abdominal discomfort. 3. Anxiety. Patient does have long standing anxiety, now complicated by situational anxiety and depression. Would like to offer him some sertraline, at this point in time he would like to wait for further medications. 4. Dyspnea. 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 We will continue to monitor. 5. Advanced care planning. Patient continues with feeling of overwhelm, has met with medical palliative care social work job titles who is assisting with connecting with [facility] for Medicare. Patient has been encouraged to decide around DPOA, and will continue to work with patient advance care planning and long-term goals. 30 minutes [place] view of chart, oncology notes, [id number] with patient, counseling regarding symptom management and anticipatory guidance.
== END 2020-11-14 15:05 | disposition home or self-care (01) ==
LOC: PC 15:04
PROVIDERS: ATTEND Nurse Practitioner Adult Health
DX: Z51.5 Encounter for palliative care (principal); C15.9 Malignant neoplasm of esophagus, unspecified; R10.13 Epigastric pain; R06.00 Dyspnea, unspecified; G89.29 Other chronic pain; M54.9 Dorsalgia, unspecified; K21.9 Gastro-esophageal reflux disease without esophagitis; F41.9 Anxiety disorder, unspecified; K59.00 Constipation, unspecified; R19.7 Diarrhea, unspecified; D64.9 Anemia, unspecified; F17.200 Nicotine dependence, unspecified, uncomplicated; Z79.82 Long term (current) use of aspirin; Z79.899 Other long term (current) drug therapy
CPT/HCPCS: 99214

== ENCOUNTER 2020-11-24 20:30 | Outpatient (CLI) | payer BC ==
--- NOTE | 2020-11-25 08:27 | Ultrasound Report ---
PROCEDURE: Testicle INDICATIONS: SQUAMOUS CELL CA TECHNIQUE: Real-time scanning was performed of the scrotum and testicles, with image documentation. Color and p ulse Doppler interrogation was performed of both testicles. COMPARISON: None. FINDINGS: Right: Testicle is normal in size at 4 x 2.0 x 2.5 cm, and homogenous in echotexture. A few scattere d echogenic foci are noted. Epididymis is normal in overall size and morphology. Mild to moderate hydrocele. No varicocele. Overl isaac scrotal skin is thickened. Left: Testicle is normal in size at 3.2 x 2.4 x 2.1 cm, and homogeneous in echotexture. A few scatt ered echogenic foci are noted. Epididymis is normal in overall size and morphology. Small hydrocele. Moderate varicocele can Jameson ing scrotal skin is thickened. Doppler: Color and pulse Doppler demonstrate normal and symmetric arterial flow in both testicles. IMPRESSION: 1. Bilateral scrotal skin thickening. 2. Bilateral hydroceles as detailed above. 3. Moderate left varicocele. 4. Testicular microlithiasis, which can be asymptomatic and benign. Consider annual sonographic follo w-up based on the patient's risk factors for germ cell tumor. Reviewed by: Anuel Alvarado MD on 11/25/2020 8:25 AM PDT Approved by: Anuel Alvarado MD on 11/25/2020 8:25 AM PDT Station ID: [id number]
--- NOTE | 2020-11-25 08:34 | Ultrasound Report ---
PROCEDURE: Ext Limited Non Vascular INDICATIONS: ?lymphadenopathy @ BL Incision site TECHNIQUE: Real-time scanning was performed of the bilateral inguinal regions, with image documentat ion. COMPARISON: None. FINDINGS: A predominantly hypoechoic lesion is seen in the right inguinal/thigh region, which contai ns anechoic areas and measures 6.9 x 5.7 x 4.2 cm. A prominent lymph node is seen in the right groin, measuring 1.3 cm in short axis. Inferior to the patient's left surgical incision, 2 hypoechoic lesions are seen, measuring up to 2.8 cm. IMPRESSION: 1. Hypoechoic lesion in the right inguinal/thigh region, which may reflect a hematoma. 2. Cystic foci in the left inguinal region, which are nonspecific but may reflect seromas. Reviewed by: Anuel Alvarado MD on 11/25/2020 8:33 AM PDT Approved by: Anuel Alvarado MD on 11/25/2020 8:33 AM PDT Station ID: [id number]
== END 2020-11-24 20:31 | disposition home or self-care (01) ==
LOC: DI 20:30
PROVIDERS: ATTEND Internal Medicine
DX: C80.1 Malignant (primary) neoplasm, unspecified (principal); R93.7 Abnormal findings on diagnostic imaging of other parts of musculoskeletal system

== ENCOUNTER 2020-11-26 09:58 | Outpatient (CLI) | payer BC ==
--- NOTE | 2020-11-26 11:25 | CONSULTATION NOTE ---
Palliative Care Follow Up - Referral Referring Provider: Dr. 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 He had to retire secondary concern for safety, had not had medical care up to this point and started his work-up. He originally had a cardiac stent placement, before he could move forward with his femoral endarterectomy neurectomy on 08/2020. During his operation he has suspicious lymphadenopathy which was biopsied by me positive for squamous cell carcinoma and subsequent work-up scan 09/15/2020 showed distal esophageal as primary, lymphangitic spread in lungs, as well as retroperitoneal lymphadenopathy. Patient presents with ongoing increased scrotal swelling, did have a ultrasound that showed hydroceles and variceal, is scheduled to have a CT of the pelvic ab the men as suspicious that this is causing his symptoms. He is quite uncomfortable with this, though reports he cannot pee and has had some intermittent trouble with frequent hard stools. Patient was seen by palliative care, started conversation, no was checking in as far as the symptom management, and started to get more frustrated and anxious. Patient developed within 15 to 20 minutes inability to complete a full sentence sentence, word finding issues, was not confused. Was quite frustrated with his ability to be able to not talk. This had not happened to him before. This was a new symptom. He denies any headache, his blood pressure was within normal range of 112/67 with a pulse of 113. He did only report some right eye blurring this a.m. 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 Patient is on Brilinta for his stent placement, reports he has taken that as well as his aspirin, is able to confirm he has been compliant with his medications. Given his high risk for stroke/bleed, call and report to emergency physician Dr. Rodriguez, patient will get evaluated. Patient at this point time is still a full code, have been trying to meet with patient and his significant other to establish goals of care. Patient does have some understanding of the seriousness of his illness. He is scheduled to see radiation oncology tomorrow, and was scheduled to get chemo today, but this will be delayed pending outcome of the ED visit.Patient denies any trauma, falls, or any acute headache pain. Past Medical History: Hypertension, high cholesterol, CAD, peripheral vascular disease, angina, COPD GERD, anxiety, chronic back pain, coronary stent placement, cardiac catheterization, femoral-popliteal bypass Social History - Living Situation Living arrangement: Other Living Situation: With friend(s) Support System: Patient does have good friend Delia Mckeon [phone], who is a old girlfriend who does provide support and advocacy for his medical problems. He is currently staying with a friend Amanda who is a connection to an old girlfriend. He is going to need a more concrete plan for long-term planning and short-term is experiencing some transportation issues. Patient was in the [employer] 3 years when he was young, he is coming up on Medicare age and will need some assistance with transitioning. Medications/Allergies - Medications Home Medications: Ambulatory Orders Medication Instructions Recorded Confirmed Aspirin Chewable [[place] 1 tab PO DAILY 10/08/20 11/14/20 Aspirin] Atorvastatin [Lipitor] 40 mg PO DAILY PM 10/08/20 11/14/20 Losartan [Cozaar] 25 mg PO DAILY 10/08/20 11/14/20 Metoprolol Succinate [Toprol Xl] 25 mg PO DAILY 10/08/20 11/14/20 Ticagrelor [Brilinta] 90 mg PO BID 10/08/20 11/14/20 Ondansetron HCl [Zofran] 4 mg PO Q6HR PRN #30 tab 10/14/20 11/14/20 Prochlorperazine Maleate 10 mg PO Q6HR PRN #30 tab 10/14/20 11/14/20 [Compazine] HYDROcod/ACETAM 5/325 [[place] 5/325] 1 each PO Q6H PRN #30 tablet 10/22/20 11/14/20 Omeprazole 40 mg PO BID MDD x 1 week; then 11/14/20 11/14/20 daily dexAMETHasone [Decadron] 4 mg PO DAILY 11/14/20 11/14/20 - Allergies Allergies/Adverse Reactions: Allergies Allergy/AdvReac Type Severity Reaction Status Date / Time No Known Drug Allergies Allergy Verified 11/26/20 11:26 Review of Systems - Constitutional Constitutional: reports: Fatigue, Weakness, Poor appetite, Weight loss. denies: Fever, Chills - Eyes Eyes: reports: Vision loss - Ears, Nose & Throat Ears, Nose & Throat: reports: Dental decay - Cardiovascular Cardiovascular: reports: Palpitations, Exertional dyspnea, Decr. exercise tolerance - Respiratory Respiratory: reports: SOB at rest, SOB with exertion - Gastrointestinal Gastrointestinal: reports: Constipation (hard stool yesterday; not compliant with mirlalax), Reflux/heartburn (better with omeprazole), Bloating, Poor appetite, Early satiety. denies: Nausea - Genitourinary Genitourinary: reports: Frequency, Sexual dysfunction, Other (reports is emptying bladder no problems with urnitating despite scrotal swelling) - Musculoskeletal Musculoskeletal: reports: Back pain, Muscle aches, Stiffness, Muscle weakness - Integumentary Integumentary: reports: Dryness - Neurological Neurological: reports: General weakness - Psychiatric Psychiatric: reports: Anxiety. denies: Depression - Hematologic/Lymphatic Hematologic/Lymph: reports: Anemia (up to 10.2) - All Other Systems All Other Systems: reports: Reviewed and negative Physical Exam - Vital Signs Temperature: 36.9 C Pulse Rate: 113 Blood Pressure: 112/67 - Physical Exam General Appearance: positive: Alert, Moderate distress (escalting with word finding problems), Anxious Eyes Bilateral: positive: Normal inspection ENT: positive: Other (poor dentition) Neck: positive: Trachea midline Cardiovascular: positive: Tachycardia Respiratory: positive: No respiratory distress Abdomen: positive: Tenderness, Distended, Other (scrotal edema/penile swelling) Skin: positive: Dryness, Other (scars healed) Extremities: positive: No pedal edema Neurologic/Psychiatric: positive: Oriented x3, Mood/affect nml, Weakness, Slurred/abnml speech, Flat affect, Other (difficulty with word finding) Palliative Care - POLST Patient has POLST: No POLST Status: Full Code Pain: Pain improved, Location (lower abdominal discomfort) Feelings of wellbeing/Perceived Quality of Life: Poor, Worsening Sleep: Sleeps poorly Constipation: Yes, Intermittent constipation Performance Status: Patient having declining activity tolerance, is much more sedentary. Is able ambulate short distances. Is managing his own ADLs. Currently is not driving - Palliative Care Discussion: Patient was to meet with palliative care today, to discuss further goals of care DPOA and complete advanced care planning. Unfortunately his as of/Delia who most likely would be designated as the DPOA is not available and ill today. Fo rtunately also patient worsened within 20 minutes of our appointment, to an acute situation. He does understand the seriousness of his illness, has been getting more depressed and distressed with this. Now is very distressed with his current acute situation. Results - Lab Results Lab results reviewed: Yes Lab and Imaging Results: US reviewed with Dr. Baltazar; ordered CT scan pelvis/abd Impression and Recommendations - Palliative Care Impression: This is a 64-year-old gentleman diagnosed with squamous cell carcinoma with metastatic disease, presumed esophageal primary, with retinal adenopathy, and limited static spread of lungs. Patient has recently had iron transfusions as well as 2 units of packed red blood cells with improvement in both his hemoglobin and symptoms. Patient does at baseline have underlying anxiety. Unfortunately during visit today he presented with acute signs suspicious of stroke/bleed, transition to ED for evaluation. Palliative care to provide support for symptom management advanced care planning, will revisit with next appointment. Recommendations/Counseling Done: 1. Aphasia. Patient presents with acute aphasia, is a high risk for stroke/cerebral bleed. Patient to be acutely evaluated at emergency room given symptomology. 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 Call to ED with report to Dr. Rodriguez, and consult with Dr. Fermin SOUZA regarding patient's symptoms and transition to ED. Treatment held today. 2. Constipation. Patient continues with intermittent constipation, reporting hard stool. Has not been using the MiraLAX, beginning of visit we discussed again need for compliance with MiraLAX. 3. Anxiety. Patient has longstanding anxiety, now complicated by situational anxiety and depression. And now with acute symptoms, patient continues to be somewhat overwhelmed by his ongoing medical changes and issues. 4. Advanced care planning. Unfortunately had plan to meet with Delia and patient regarding further follow-up on designating DPOA, and initiating conversations regarding advanced care planning documents as well as initiate long-term plan is patient does have most likely a poor prognosis in the context of his current situation. Will follow up after this appointment, continue to try and coordinate family meeting. 45 minutes with review of imaging, scans, as oncology notes, [id number] with patient, coordination of care with oncology and ED
== END 2020-11-26 09:59 | disposition home or self-care (01) ==
LOC: PC 09:58
PROVIDERS: ATTEND Nurse Practitioner Adult Health
DX: Z51.5 Encounter for palliative care (principal); C15.5 Malignant neoplasm of lower third of esophagus; C78.00 Secondary malignant neoplasm of unspecified lung; C77.9 Secondary and unspecified malignant neoplasm of lymph node, unspecified; J44.9 Chronic obstructive pulmonary disease, unspecified; K21.9 Gastro-esophageal reflux disease without esophagitis; F41.9 Anxiety disorder, unspecified; R47.01 Aphasia; K59.00 Constipation, unspecified; G89.29 Other chronic pain; M54.9 Dorsalgia, unspecified; Z95.5 Presence of coronary angioplasty implant and graft; Z95.828 Presence of other vascular implants and grafts; I73.9 Peripheral vascular disease, unspecified; Z79.82 Long term (current) use of aspirin; Z79.52 Long term (current) use of systemic steroids; Z79.899 Other long term (current) drug therapy
CPT/HCPCS: 99215

== ENCOUNTER 2020-11-26 11:11 | Emergency (ER) | payer BC ==
[2020-11-26] MEDS ORDERED: SODIUM CHLORIDE 0.9% 1,000 ML IV STA (11:38)
--- NOTE | 2020-11-26 11:39 | ED Physician Documentation ---
PD HPI FOCAL NEURO - Stated complaint Stated Complaint: TROUBLE W/SPEECH - Chief complaint Chief Complaint: Neuro - History obtained from History obtained from: Patient - History of Present Illness Timing - onset: How many minutes ago (45), Today (10:45) Timing - duration: Minutes (20-25) Timing - details: Abrupt onset, Now resolved Severity of deficit: Moderate Weakness: No: Face, Arm, Leg Numbness: No: Face, Arm, Leg Associated symptoms: No: Headache, Nausea / vomiting, Seizure, Syncope, Head injury Contributing factors: positive: Anticoagulated, Vascular dz (Patient has had both prior heart stent by Cardiology and femoropopliteal interventions by vascular surgeon deferring in [place].) Baseline status: positive: A&OX3, ambulatory, indep Similar symptoms before: Has not had sx before Recently seen: Clinic (chemo and radiation for esophageal cancer with abd mets and nodes.) Review of Systems Constitutional: denies: Fever, Chills Nose: denies: Rhinorrhea / runny nose, Congestion Throat: denies: Sore throat Cardiac: denies: Chest pain / pressure, Palpitations Respiratory: denies: Cough GI: reports: Abdominal Pain (chronic). denies: Nausea, Vomiting, Diarrhea Skin: denies: Rash, Lesions Neurologic: denies: Headache, Head injury PD PAST MEDICAL HISTORY - Past Medical History Past Medical History: Yes Cardiovascular: Hypertension, High cholesterol, Coronary artery disease, Peripheral Vascular Disease, Angina Respiratory: COPD, Shortness of breath Neuro: None Endocrine/Autoimmune: None GI: None : None HEENT: None Psych: None Musculoskeletal: Chronic back pain Derm: None - Past Surgical History General: Other Ortho: Other Cardiovascular: Coronary stent, Cardiac catheterization, Fempop bypass (Dr. Jacobs in [place]) - Present Medications Home Medications: Ambulatory Orders Medication Instructions Recorded Confirmed Aspirin Chewable [[place] 1 tab PO DAILY 10/08/20 11/14/20 Aspirin] Atorvastatin [Lipitor] 40 mg PO DAILY PM 10/08/20 11/14/20 Losartan [Cozaar] 25 mg PO DAILY 10/08/20 11/14/20 Metoprolol Succinate [Toprol Xl] 25 mg PO DAILY 10/08/20 11/14/20 Ticagrelor [Brilinta] 90 mg PO BID 10/08/20 11/14/20 Ondansetron HCl [Zofran] 4 mg PO Q6HR PRN #30 tab 10/14/20 11/14/20 Prochlorperazine Maleate 10 mg PO Q6HR PRN #30 tab 10/14/20 11/14/20 [Compazine] HYDROcod/ACETAM 5/325 [[place] 5/325] 1 each PO Q6H PRN #30 tablet 10/22/20 11/14/20 Omeprazole 40 mg PO BID MDD x 1 week; then 11/14/20 11/14/20 daily dexAMETHasone [Decadron] 4 mg PO DAILY 11/14/20 11/14/20 - Allergies Allergies/Adverse Reactions: Allergies Allergy/AdvReac Type Severity Reaction Status Date / Time No Known Drug Allergies Allergy Verified 11/26/20 11:26 - Social History Does the pt smoke?: Yes Smoking Status: Current every day smoker Does the pt drink ETOH?: No Does the pt have substance abuse?: No - Immunizations Immunizations are current?: Yes - POLST Patient has POLST: No PD ED PE NORMAL - Vitals Vital signs reviewed: Yes - General General: Alert and oriented X 3, No acute distress, Well developed/nourished - HEENT HEENT: Pharynx benign - Neck Neck: Supple, no meningeal sign, No adenopathy - Cardiac Cardiac: RRR, No murmur - Respiratory Respiratory: Clear bilaterally - Abdomen Abdomen: Soft, Non tender - Derm Derm: Normal color, Warm and dry - Extremities Extremities: Normal ROM s pain, No edema, No calf tenderness / cord - Neuro Neuro: Alert and oriented X 3, No motor deficit, Normal speech Eye Opening: Spontaneous Motor: Obeys Commands Verbal: Oriented GCS Score: 15 - Psych Psych: Normal mood, Normal affect NIHSS - Level of Consciousness Level of consciousness: (0) Alert, Keenly responsive LOC Questions: (0) Answers both Q's correct LOC Commands: (0) Performs both correctly - Gaze Best Gaze: (0) Normal - Visual Visual: (0) No loss - Facial Palsy Facial Palsy: (0) Normal, symmetrical movement - Motor Arms (both separate) Motor Arm (right): (0) No drift Motor Arm (left): (0) No drift - Motor Legs (both separate) Motor Leg (right): (0) No drift Motor Leg (left): (0) No drift - Limb Ataxia Limb Ataxia: (0) Absent - Sensory Sensory: (0) Normal - Best Language Best Language: (0) No aphasia - Dysarthria Dysarthria: (0) Normal - Extinction and Inattention (formally neg Extinction and inattention: (0) No abnormality - Total Score/Results Total Score/Result: 0 Results - Vitals Vitals: Vital Signs - 24 hr 11/26/20 11/26/20 11/26/20 11:21 13:04 15:33 Temperature 36.5 C Heart Rate 110 H 93 80 Respiratory 25 H 21 19 Rate Blood Pressure 134/78 H 137/77 H 152/82 H O2 Saturation 100 100 100 Oxygen O2 Source Room air - Labs Labs: Laboratory Tests 11/26/20 10:17 Sodium Cancelled Potassium Cancelled Chloride Cancelled Carbon Dioxide Cancelled Anion Gap Cancelled BUN Cancelled Creatinine Cancelled Estimated GFR (MDRD) Cancelled Glucose Cancelled Calcium Cancelled Magnesium 1.9 Total Bilirubin Cancelled AST Cancelled ALT Cancelled Alkaline Phosphatase Cancelled Total Protein Cancelled Albumin Cancelled Globulin Cancelled Albumin/Globulin Ratio Cancelled Lipase 27 - Rads (name of study) head/neck CTA Radiology: Prelim report reviewed (Intracranial without any acute process. Carotid show 7 to 80% stenosis on the left and a near total occlusion on the right.), See rad report PD MEDICAL DECISION MAKING - ED course Complexity details: considered differential (TIA symptoms. Patient has resolved at this time. Is on anticoag [place]. Eval for bleed, stenosis, structural problems (mets/tumors).), d/w patient, d/w home sales consultant (Discussed with on-call vascular surgery who felt the patient needed transferring to hospitalist service for TIA work-up and vascular consultation with intention of carotid stenting inpatient in the next 1-2 days.) ED course: [facility] transfer center says there arranging beds. They will have one available and will call back shortly with bed availability to confirm transfer. Departure - Departure Disposition: 02 Transfer Acute Care Hosp Clinical Impression: Aphasia, TIA (transient ischemic attack) Carotid stenosis, symptomatic w/o infarct Qualifiers: Laterality: right Qualified Code(s): I65.21 - Occlusion and stenosis of right carotid artery Condition: Stable Record reviewed to determine appropriate education?: Yes
[2020-11-26] MEDS ORDERED: IOVERSOL 320 100 ML VIAL IVP ONE ×2 (12:03→13:54)
--- NOTE | 2020-11-26 12:57 | CT Report ---
PROCEDURE: ANGIO HEAD W/WO INDICATIONS: L sided facial droop CONTRAST: IV CONTRAST: Optiray 320 ml: 80 PO CONTRAST: *NO PO CONTRAST TECHNIQUE: Precontrast 4.5 mm thick angled axial sections acquired from the foramen magnum to the vertex. Afte r the administration of intravenous contrast, 1 mm thick sections acquired through the [place] of Will is. Postcontrast 4.5 mm thick sections then re-acquired from the foramen magnum to the vertex. 3-di mensional rcwassl-pgewptgcc-ggpijvtsfk (MIP) and/or volume rendering reformats were acquired of the c entral intracranial vasculature. For radiation dose reduction, the following was used: automated ex posure control, adjustment of mA and/or kV according to patient size. COMPARISON: Correlation is made with the accompanying neck CT angiogram, 11/26/2020. FINDINGS: Image quality: There is streak artifact seen through the skull base. Anterior circulation: Intracranial internal carotid arteries demonstrate generalized atrophy calcifi cation and irregularity, with up to 50% narrowing seen on each side. The flow within the paired ante rior cerebral arteries is normal and symmetric. The flow within the middle cerebral arteries is norm al and symmetric. The anterior communicating artery is seen. No aneurysms are seen. Posterior circulation: Visualized portions of the vertebral arteries demonstrate normal caliber, and join to form a normal appearing basilar artery. Incidental note is made of a prominent right poste rior communicating artery, with a diminutive right P1 segment. This is attributed to a type mariya gin of the right posterior cerebral artery, which is considered to be a developmental variant of typi vini no clinical consequence. Flow within the posterior cerebral arteries is normal and symmetric. No aneurysms are seen. CSF spaces: Ventricles are normal in size and shape. Basal cisterns are patent. No extra-axial flu id collections. Brain: No midline shift. No intracranial bleeds or masses. [place]-white matter interface appears int act. In this patient with a history of left-sided facial droop, scrutiny is given to the course of the fac ial nerves, including within the visualized left parotid. No felicia masses are seen. Skull and face: Calvarium and facial bones appear intact, without suspicious lesions. Sinuses: Visualized sinuses and mastoids are clear. IMPRESSION: No intracranial hemorrhage is seen. No significant intracranial abnormality is seen. No significant intracranial arterial abnormalities are seen. No imaging explanation is found for the patient's presenting symptoms. If it would be helpful for clinical management decision making this patient with enlarged lymph nodes on the accompanying neck CT angiogram, please consider a dedicated brain MRI (IAC protocol, without and with contrast) for further evaluation (assuming that there is no contraindication). Reviewed by: Avila Evangelista MD on 11/26/2020 11:56 AM CHASITY Approved by: Avila Evangelista MD on 11/26/2020 11:56 AM CHASITY Station ID: [id number]
--- NOTE | 2020-11-26 13:09 | CT Report ---
PROCEDURE: ANGIO NECK W INDICATIONS: L sided facial droop, L neck pain CONTRAST: IV CONTRAST: Optiray 320 ml: 80 PO CONTRAST: *NO PO CONTRAST TECHNIQUE: After the administration of intravenous contrast, 1.5 mm axial sections acquired from the aortic arch to the [place] of [place]. Coronal 3-D maximum intensity projection (MIP) and/or volume rendering ref ormats were then performed. For radiation dose reduction, the following was used: automated exposur e control, adjustment of mA and/or kV according to patient size. COMPARISON: Correlation is made with the accompanying head CT angiogram, 11/26/2020. FINDINGS: Image quality: Excellent. Carotid system: The great vessels demonstrate a conventional anatomy as they arise from the aortic a rc. The origins of the common carotid arteries appear patent. There is 40-50% narrowing seen invol ving the mid to distal left common carotid artery, as on series 4 image 101. The common carotid arter ies otherwise demonstrate normal calibers and courses. The bifurcation regions demonstrate prominent atherosclerotic calcification and irregularity. There is near complete stenosis of the right proxima l internal carotid artery. The left proximal internal carotid artery demonstrates 70-80% narrowing. T he more distal internal carotid arteries demonstrate normal course and caliber. Posterior circulation: The origins of the vertebral arteries demonstrate approximately 50% narrowing . The more superior portions of the vertebral arteries demonstrate normal course and caliber. They j oin to form a normal appearing basilar artery. Soft tissues: Enlarged neck lymph nodes are seen throughout. There is a right level 3 lymph node seen on series 2 image 111 measuring 2 x 1.6 cm in greatest axial dimension, with a necrotic center. This lymph node demonstrates mass effect upon the adjacent jugular vein, as on series 4 image 100. There is an enlarged left level 5A lymph node seen, as on series 2 image 114 measuring 17 x [address] axial dimension. Abnormally enlarged mediastinal lymph nodes are also seen, including a left poste rior superior lymph node with necrotic center that measures 3.6 x 3.3 cm in greatest axial dimension. The thyroid is normal in size and there are no incidental findings. Mild fibrotic changes and nodule s can be seen involving the lung apices. A left-sided chest port is seen. Bones: No suspicious bony lesions. Visualized cervical spine appears normally aligned. At least m oderate cervical spine degenerative changes are seen. No frankly suspicious lytic or blastic lesions can be seen. IMPRESSION: There is near complete occlusion of the right proximal internal carotid artery and 70-80 % narrowing seen involving the left proximal internal carotid artery. Vascular surgery consultation is recommended. There is approximately 40% narrowing seen involving the left mid to distal common carotid artery. The origins of the vertebral arteries demonstrate approximately 50% narrowing on each side. Abnormally enlarged lymph nodes are seen in this patient with a known history of metastatic esophagea l cancer. Within the lung apices, mild fibrotic changes and nodules can be seen. Incidental note is made of: Left-sided chest port At least moderate cervical spine degenerative change Note: Case discussed by telephone with Dr. Rodriguez at 12:05 PM [place] time on 11/26/2020. The estimate of stenosis included in the report of the imaging study was calculated using the NASCET method Reviewed by: Avila Evangelista MD on 11/26/2020 12:08 PM [facility] Approved by: Avila Evangelista MD on 11/26/2020 12:08 PM AKDT Station ID: [id number]
[2020-11-26] MEDS ORDERED: ASPIRIN CHEW 81 MG TABLET PO STA (14:18)
[2020-11-26 15:31] LABS: MAGNESIUM 1.9 mg/dL (1.7-2.8)
[2020-11-26 19:36] LABS: B. PARAPERTUSSIS- RESP PCR PAN NOT DETECTED; B. PERTUSSIS- RESP PCR PANEL NOT DETECTED; C. PNEUMONIAE- RESP PCR PANEL NOT DETECTED; CORONAVIRUS 229E-RESP PCR NOT DETECTED; CORONAVIRUS HKU1-RESP PCR NOT DETECTED; CORONAVIRUS NL63-RESP PCR NOT DETECTED; CORONAVIRUS OC43-RESP PCR NOT DETECTED; HUMAN METAPNEUMOVIRUS NOT DETECTED; INFLUENZA A- RESP PCR PANEL NOT DETECTED; INFLUENZA B - RESP PCR PANEL NOT DETECTED; M. PNEUMONIAE- RESP PCR PANEL NOT DETECTED; PARAINFLUENZA VIRUS 1 NOT DETECTED; PARAINFLUENZA VIRUS 2 NOT DETECTED; PARAINFLUENZA VIRUS 3 NOT DETECTED; PARAINFLUENZA VIRUS 4 NOT DETECTED; RHINOVIRUS/ENTEROVIRUS NOT DETECTED; RSV- RESP PCR PANEL NOT DETECTED; SARS-CoV-2 -RESP PCR PANEL NOT DETECTED
[2020-11-27] MEDS ORDERED: ENOXAPARIN 80 MG/0.8 ML SYRINGE SUBQ STA (07:45)
--- NOTE | 2020-11-27 07:51 | ED Physician Documentation ---
ED Addendum - Addendum Addendum: 11/27/20 07:45 The patient asked to talk with me this morning. He is little bit frustrated at the lack of transfer. He is also concerned about needing a procedure in perhaps some element of just being scared. Talked with him about what was going on and the likely intervention being a stent. He has had inguinal bypass and a heart stent so is familiar with the procedures generally speaking. However at this point he states he has had these TIA type episodes in the past and is gotten through and would wants to leave the hospital and follow-up with his vascular surgeon outpatient rather than being transferred. We talked at length about the concern for large stroke and the consequence of that being debilitation, bedridden, wholly dependent on care as much more likely scenarios than but that would also be a possibility. I asked him to envision needing total care and bedridden status and if he wanted that potential outcome. Obviously said he did not but he is willing to take the risk and he understands that the sooner the carotid stenosis is taken care of the better. He will follow-up by calling his vascular surgeon. I tried to reiterate the importance of getting this taken care of. I told him that had he been transferred yesterday he would have only sat in a hospital room overnight anyway so the advancement of care is not really much different at this point but he still needs to get to see the vascular surgeons. Awaiting for transfer today is still the most appropriate treatment. He still declines and asked to be discharged. I did tell him we would be AGAINST MEDICAL ADVICE. He is states he is willing to sign the AMA form. He is able to state back his understanding of the risk for large stroke and the reasoning for "sooner is best" to intervene on the carotid stenosis. He still chooses to leave now and follow up outpatient. He will continue his Brilinta a and aspirin. He will call Dr. Jacobs's office.
[2020-11-27 08:11] VITALS: BP 158/87
== END 2020-11-27 08:10 | disposition left against medical advice (07) ==
LOC: ED 11:11
DX: G45.9 Transient cerebral ischemic attack, unspecified (principal); I65.21 Occlusion and stenosis of right carotid artery; R00.0 Tachycardia, unspecified; Z20.822 Contact with and (suspected) exposure to COVID-19; I10 Essential (primary) hypertension; C15.9 Malignant neoplasm of esophagus, unspecified; C79.89 Secondary malignant neoplasm of other specified sites; Z79.82 Long term (current) use of aspirin; F17.200 Nicotine dependence, unspecified, uncomplicated
CPT/HCPCS: 0202U; 36415; 70496; 70498; 83690; 83735; 93005; 96372; 96374; 99284; 99285; A9270; J1650; Q9967; 80053; 85025

== ENCOUNTER 2020-12-10 09:19 | Outpatient (CLI) | payer BC | END 2020-12-10 09:20 | disposition home or self-care (01) | LOC: PC 09:19 | PROVIDERS: ATTEND Nurse Practitioner Adult Health | DX: Z53.9 Procedure and treatment not carried out, unspecified reason (principal) ==

== ENCOUNTER 2020-12-17 12:22 | Emergency (ER) | payer BC ==
[2020-12-17] MEDS ORDERED: IOVERSOL 320 100 ML VIAL IVP ONE ×2 (12:52→13:49)
[2020-12-17] MEDS ORDERED: SODIUM CHLORIDE 0.9% 1,000 ML IV STA ×2 (13:09→14:41)
[2020-12-17 13:29] LABS: INR 1.1 (0.8-1.2); PT - PROTHROMBIN TIME 12.3 secs (9.9-12.6)
[2020-12-17 13:36] LABS: PARTIAL THROMBOPLASTIN TIME 26.8 secs (24.9-33.3)
--- NOTE | 2020-12-17 13:40 | ED Physician Documentation ---
History of Present Illness - Stated complaint Stated Complaint: [place] [facility] [place] Chief complaint Chief Complaint: General - History obtained from History obtained from: Patient - History of Present Illness Timing: How many weeks ago (several weeks) Pain level max: 0 Pain level now: 0 - Additonal information Additional information: Patient is a 64-year-old male who is sent [place] [facility] [place]. He was seen Dr. Stock, oncology when he noticed his patient appeared to be more jaundiced. 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 has worsening transaminitis and hyperbilirubinemia. Concern for obstructive process versus liver failure. Sent here for CT scan. Had an initial chemotherapy episode on 11/26/2020. Is not currently on chemotherapy. 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 Had seen vascular surgery with no recommendations. Review of Systems Ten Systems: 10 systems reviewed and negative Constitutional: denies: Fever, Chills Nose: denies: Rhinorrhea / runny nose GI: denies: Vomiting, Constipation, Diarrhea Skin: denies: Rash Musculoskeletal: denies: Neck pain, Back pain Neurologic: denies: Headache PD PAST MEDICAL HISTORY - Past Medical History Past Medical History: Yes Cardiovascular: Hypertension, High cholesterol, Coronary artery disease, Peripheral Vascular Disease, Angina Respiratory: COPD, Shortness of breath Neuro: None Endocrine/Autoimmune: None GI: None : None HEENT: None Psych: None Musculoskeletal: Chronic back pain Derm: None - Past Surgical History Past Surgical History: Yes General: Other Ortho: Other Cardiovascular: Coronary stent, Cardiac catheterization, Fempop bypass - Present Medications Home Medications: Ambulatory Orders Medication Instructions Recorded Confirmed Aspirin Chewable [[place] 1 tab PO DAILY 10/08/20 11/27/20 Aspirin] Atorvastatin [Lipitor] 40 mg PO DAILY PM 10/08/20 11/27/20 Losartan [Cozaar] 25 mg PO DAILY 10/08/20 11/27/20 Metoprolol Succinate [Toprol Xl] 25 mg PO DAILY 10/08/20 11/27/20 Ticagrelor [Brilinta] 90 mg PO BID 10/08/20 11/27/20 Ondansetron HCl [Zofran] 4 mg PO Q6HR PRN #30 tab 10/14/20 11/27/20 Prochlorperazine Maleate 10 mg PO Q6HR PRN #30 tab 10/14/20 11/27/20 [Compazine] HYDROcod/ACETAM 5/325 [[place] 5/325] 1 each PO Q6H PRN #30 tablet 10/22/20 11/27/20 Omeprazole 40 mg PO BID MDD x 1 week; then 11/14/20 11/27/20 daily dexAMETHasone [Decadron] 4 mg PO DAILY 11/14/20 11/27/20 Furosemide [Lasix] 20 mg PO DAILY #30 tablet 12/01/20 - Allergies Allergies/Adverse Reactions: Allergies Allergy/AdvReac Type Severity Reaction Status Date / Time No Known Drug Allergies Allergy Verified 12/17/20 12:36 - Social History Does the pt smoke?: Yes Smoking Status: Current every day smoker Does the pt drink ETOH?: No Does the pt have substance abuse?: No - Immunizations Immunizations are current?: Yes - POLST Patient has POLST: No PD ED PE NORMAL - Vitals Vital signs reviewed: Yes - General General: Alert and oriented X 3, No acute distress, Well developed/nourished, Other (jaundiced male) - HEENT HEENT: Moist mucous membranes - Neck Neck: Supple, no meningeal sign - Cardiac Cardiac: RRR, Strong equal pulses - Respiratory Respiratory: No respiratory distress, Clear bilaterally - Abdomen Abdomen: Soft, Non tender, Non distended - Derm Derm: Warm and dry - Extremities Extremities: No calf tenderness / cord - Neuro Neuro: Alert and oriented X 3 - Psych Psych: Normal mood, Normal affect Results - Vitals Vitals: Vital Signs - 24 hr 12/17/20 12/17/20 12/17/20 12:33 13:51 15:10 Temperature 36.8 C Heart Rate 110 H 99 88 Respiratory 18 28 H 24 Rate Blood Pressure 102/63 129/71 122/68 O2 Saturation 95 100 98 Oxygen O2 Source Room air - Labs Labs: Laboratory Tests 12/17/20 13:16 PT 12.3 INR 1.1 APTT 26.8 - Rads (name of study) CT abd/pelvis Radiology: Final report received, EMP read contemporaneously, See rad report PD MEDICAL DECISION MAKING - ED course Complexity details: reviewed old records, reviewed results, re-evaluated patient, considered differential, d/w patient, d/w vocational rehab consultant ED course: Patient is a 64-year-old male with 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 He also appears to have a mass in his pancreatic head or peripancreatic adenopathy causing obstruction of the biliary tree. 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 His bilirubin and LFTs are elevated. He does not have any fevers and has no pain. He was hyponatremic and mildly dehydrated, 2 L of IV fluid given. Patient does not want to be transferred for potential biliary stent. He does appear stable at this time. He states that he will go to [facility] if he develops fever or pain or worsens. Discussed the case with Dr. Stock, oncology who will follow him closely as an outpatient. Patient is tolerating p.o. without difficulty here. Patient counseled regarding signs and symptoms for which I believe and urgent re-evaluation would be necessary. Patient with good understanding of and agreement to plan and is comfortable going home at this time This document was made in part using voice recognition software. While efforts are made to proofread this document, sound alike and grammatical errors may occur. IMPRESSION: 1. There is a large mass related to the distal esophagus, which may potentially represent a intrinsic esophageal mass with a large polypoid component. 2. Clear evidence of pulmonary metastatic disease in the right lung base. Probable interstitial spread of tumor in the right lung, small right pleural effusion. 3. There is either an intrinsic head of pancreas mass or peripancreatic adenopathy. 4. There is extensive mesenteric adenopathy. 5. Peritoneal carcinomatosis. 6. Biliary ductal dilatation. 7. 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 8. Question malignant adenopathy in the right inguinal region. 9. Obstructed biliary tree secondary to pancreatic head region mass. Departure - Departure Disposition: 01 Home, Self Care Clinical Impression: Biliary obstruction, Hyperbilirubinemia, Pancreatic mass, Hyponatremia, Dehydration, Metastatic squamous cell carcinoma Condition: Stable Instructions: ED Dehydration Follow-Up: Yamilet Torres PA-C [Primary Care Provider] - BART STOCK MD [Provider Admit Priv/Credential] - Within 1 week Comments: Please follow-up with Dr. Stock for further care. He will speak to GI at [facility] in [place] to see if this can be stented. If you develop pain, fevers or worsening symptoms, would recommend you go directly to [facility] for evaluation. CT scan results: FINDINGS: Image quality: Excellent. ABDOMEN: Lung bases: There are multiple ill-defined pulmonary nodular opacities in the right lung base which are consistent with metastatic disease. Findings include 3 such nodular opacities on image 8/4, measuring 2.7 cm, 1.8 cm, and 1.2 cm respectively. Additionally, there is diffuse thickening of the interstitium which is highly suggestive of interstitial spread of malignancy in the right lung. The distal esophagus is thickened. There is a mass which appears to be related to the esophagus with a polypoid component which is suggested on the coronal reformats. It is incompletely imaged. On image 1/3 it measures 4.0 x 3.9 cm in axial plane. There is a small right pleural effusion. Solid organs: Liver and spleen are normal in size and enhancement. Gallbladder is contracted, with large gallstone. There is intrahepatic biliary ductal dilatation and extra hepatic biliary ductal dilatation with obstruction at the level of the head of the pancreas. There is either mass involving the head/uncinate process of the pancreas or peripancreatic adenopathy. On coronal image 24/6 there are 2 separate spherical masses which are contiguous with the pancreatic head/uncinate process, measuring 4.1 cm and 3.3 cm respectively. The more inferior of the 2 masses likely represents peripancreatic adenopathy. No adrenal nodules. Kidneys demonstrate normal size and enhancement, without hydronephrosis. Peritoneum and bowel: Bowel loops demonstrate normal wall thickness and caliber. No free fluid or air. There is peritoneal carcinomatosis. There are peritoneal deposits anterior to the transverse colon. Nodes and vessels: There is definite malignant mesenteric adenopathy noted. On image 41/3 is a 2.6 cm lymph node anterior to the SMA/SMV. Numerous other enlarged mesenteric lymph nodes are also present. Chronic [place] aortobiiliac thrombosis is noted with a long-standing aortobifemoral bypass graft in place. There is a chronic pseudoaneurysm at the right femoral anastomosis. Miscellaneous: No ventral hernias. Mild anasarca. PELVIS: Genitourinary: Bladder wall thickness is normal. Miscellaneous: Pseudoaneurysm in the right groin related to the aortobifemoral bypass graft. Multiple very superficial enhancing right inguinal lymph nodes may potentially be malignant in etiology. Bones: No suspicious bony lesions. No vertebral body compression fractures. IMPRESSION: 1. There is a large mass related to the distal esophagus, which may potentially represent a intrinsic esophageal mass with a large polypoid component. 2. Clear evidence of pulmonary metastatic disease in the right lung base. Probable interstitial spread of tumor in the right lung, small right pleural effusion. 3. There is either an intrinsic head of pancreas mass or peripancreatic adenopathy. 4. There is extensive mesenteric adenopathy. 5. Peritoneal carcinomatosis. 6. Biliary ductal dilatation. 7. 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 8. Question malignant adenopathy in the right inguinal region. 9. Obstructed biliary tree secondary to pancreatic head region mass. Reviewed by: Fredi Mary MD on 12/17/2020 2:08 PM PDT Discharge Date/Time: 12/17/20 16:44
--- NOTE | 2020-12-17 14:10 | CT Report ---
PROCEDURE: Abdomen/Pelvis W INDICATIONS: jaundice, abd pain, cancer CONTRAST: IV CONTRAST: Optiray 320 ml: 100 PO CONTRAST: *NO PO CONTRAST TECHNIQUE: After the administration of intravenous contrast, 5 mm thick sections acquired from the diaphragms to the symphysis. 5 mm thick coronal and sagittal reformats were acquired. For radiation dose reducti on, the following was used: automated exposure control, adjustment of mA and/or kV according to charissa ent size. COMPARISON: CT pelvis dated 12/09/2020. FINDINGS: Image quality: Excellent. ABDOMEN: Lung bases: There are multiple ill-defined pulmonary nodular opacities in the right lung base which a re consistent with metastatic disease. Findings include 3 such nodular opacities on image 8/4, measur ing 2.7 cm, 1.8 cm, and 1.2 cm respectively. Additionally, there is diffuse thickening of the interst itium which is highly suggestive of interstitial spread of malignancy in the right lung. The distal e sophagus is thickened. There is a mass which appears to be related to the esophagus with a polypoid c omponent which is suggested on the coronal reformats. It is incompletely imaged. On image 1/3 it blu ures 4.0 x 3.9 cm in axial plane. There is a small right pleural effusion. Solid organs: Liver and spleen are normal in size and enhancement. Gallbladder is contracted, with large gallstone. There is intrahepatic biliary ductal dilatation and extra hepatic biliary ductal dil atation with obstruction at the level of the head of the pancreas. There is either mass involving the head/uncinate process of the pancreas or peripancreatic adenopathy. On coronal image 24/6 there are 2 separate spherical masses which are contiguous with the pancreatic head/uncinate process, measuring 4.1 cm and 3.3 cm respectively. The more inferior of the 2 masses likely represents peripancreatic a denopathy. No adrenal nodules. Kidneys demonstrate normal size and enhancement, without hydronephros is. Peritoneum and bowel: Bowel loops demonstrate normal wall thickness and caliber. No free fluid or a ir. There is peritoneal carcinomatosis. There are peritoneal deposits anterior to the transverse colo n. Nodes and vessels: There is definite malignant mesenteric adenopathy noted. On image 41/3 is a 2.6 cm lymph node anterior to the SMA/SMV. Numerous other enlarged mesenteric lymph nodes are also present. Chronic [place] aortobiiliac thrombosis is noted with a long-standing aortobifemoral bypass graft in place. There is a chronic pseudoaneurysm at the right femoral anastomosis. Miscellaneous: No ventral hernias. Mild anasarca. PELVIS: Genitourinary: Bladder wall thickness is normal. Miscellaneous: Pseudoaneurysm in the right groin related to the aortobifemoral bypass graft. Multiple very superficial enhancing right inguinal lymph nodes may potentially be malignant in etiology. Bones: No suspicious bony lesions. No vertebral body compression fractures. IMPRESSION: 1. There is a large mass related to the distal esophagus, which may potentially represent a intrinsic esophageal mass with a large polypoid component. 2. Clear evidence of pulmonary metastatic disease in the right lung base. Probable interstitial sprea d of tumor in the right lung, small right pleural effusion. 3. There is either an intrinsic head of pancreas mass or peripancreatic adenopathy. 4. There is extensive mesenteric adenopathy. 5. Peritoneal carcinomatosis. 6. Biliary ductal dilatation. 7. Chronic aortobiiliac occlusion with aortobifemoral bypass and a chronic right groin pseudoaneurysm . 8. Question malignant adenopathy in the right inguinal region. 9. Obstructed biliary tree secondary to pancreatic head region mass. Reviewed by: Fredi Mary MD on 12/17/2020 2:08 PM PDT Approved by: Fredi Mary MD on 12/17/2020 2:08 PM PDT Station ID: [id number]
[2020-12-17 15:11] VITALS: BP 122/68
== END 2020-12-17 16:44 | disposition home or self-care (01) ==
LOC: ED 12:22
DX: K83.1 Obstruction of bile duct (principal); K86.89 Other specified diseases of pancreas; C15.5 Malignant neoplasm of lower third of esophagus; C78.01 Secondary malignant neoplasm of right lung; C78.6 Secondary malignant neoplasm of retroperitoneum and peritoneum; E86.0 Dehydration; E87.1 Hypo-osmolality and hyponatremia; I72.8 Aneurysm of other specified arteries; I10 Essential (primary) hypertension; F17.200 Nicotine dependence, unspecified, uncomplicated; Z79.82 Long term (current) use of aspirin
CPT/HCPCS: 36415; 85610; 85730; 96361; 96374; 99284

== ENCOUNTER 2021-01-05 11:14 | Outpatient (CLI) | payer MEDICARE, BC | END 2021-01-05 11:15 | disposition critical access hospital (66) | LOC: EMS 11:14 | DX: R53.1 Weakness (principal); R11.0 Nausea; R63.0 Anorexia | CPT/HCPCS: A0425; A0427 ==

== ENCOUNTER 2021-01-05 11:26 | Emergency (ER) | payer MEDICARE, BC ==
--- NOTE | 2021-01-05 11:47 | ED Physician Documentation ---
History of Present Illness - Stated complaint Stated Complaint: WEAKNESS/FAILURE TO THRIVE - Chief complaint Chief Complaint: General PD PAST MEDICAL HISTORY - Past Medical History Cardiovascular: Hypertension, High cholesterol, Coronary artery disease, Peripheral Vascular Disease, Angina Respiratory: COPD, Shortness of breath Neuro: None Endocrine/Autoimmune: None GI: None : None HEENT: None Psych: None Musculoskeletal: Chronic back pain Derm: None - Past Surgical History Past Surgical History: Yes General: Other Ortho: Other Cardiovascular: Coronary stent, Cardiac catheterization, Fempop bypass - Present Medications Home Medications: Ambulatory Orders Medication Instructions Recorded Confirmed Aspirin Chewable [[place] 1 tab PO DAILY 10/08/20 11/27/20 Aspirin] Atorvastatin [Lipitor] 40 mg PO DAILY PM 10/08/20 11/27/20 Losartan [Cozaar] 25 mg PO DAILY 10/08/20 11/27/20 Metoprolol Succinate [Toprol Xl] 25 mg PO DAILY 10/08/20 11/27/20 Ticagrelor [Brilinta] 90 mg PO BID 10/08/20 11/27/20 Ondansetron HCl [Zofran] 4 mg PO Q6HR PRN #30 tab 10/14/20 11/27/20 Prochlorperazine Maleate 10 mg PO Q6HR PRN #30 tab 10/14/20 11/27/20 [Compazine] HYDROcod/ACETAM 5/325 [[place] 5/325] 1 each PO Q6H PRN #30 tablet 10/22/20 11/27/20 Omeprazole 40 mg PO BID MDD x 1 week; then 11/14/20 11/27/20 daily dexAMETHasone [Decadron] 4 mg PO DAILY 11/14/20 11/27/20 Furosemide [Lasix] 20 mg PO DAILY #30 tablet 12/01/20 oxyCODONE [Roxicodone] 5 mg PO Q6H PRN #100 tablet 12/31/20 predniSONE [Deltasone] 1 tablet PO DAILY #30 tablet 12/31/20 - Allergies Allergies/Adverse Reactions: Allergies Allergy/AdvReac Type Severity Reaction Status Date / Time No Known Drug Allergies Allergy Verified 01/05/21 11:41 - Social History Does the pt smoke?: Yes Smoking Status: Current every day smoker Does the pt drink ETOH?: No Does the pt have substance abuse?: No - Immunizations Immunizations are current?: Yes - POLST Patient has POLST: No Results - Vitals Vitals: Vital Signs - 24 hr 01/05/21 01/05/21 11:31 11:41 Temperature 36.6 C 36.4 C L Heart Rate 167 H 154 H Respiratory 35 H 34 H Rate Blood Pressure 80/52 L 85/52 L O2 Saturation 91 L 93 Oxygen O2 Source Room air
[2021-01-05 11:55] LABS: BASOPHILS % (AUTO) 0.1 %; EOSINOPHILS # (AUTO) 0.1 10^3/uL (0.0-0.7); EOSINOPHILS % (AUTO) 0.5 %; HCT - HEMATOCRIT 24.7 % (42.0-52.0); LYMPHOCYTES # (AUTO) 0.1 10^3/uL (1.5-3.5); LYMPHOCYTES % (AUTO) 0.3 %; MEAN CORPUSCULAR HEMOGLOBIN 29.1 pg (27.0-31.0); MEAN CORPUSCULAR HGB CONC 32.4 g/dL (32.0-36.0); MEAN CORPUSCULAR VOLUME 89.8 fL (80.0-94.0); MEAN PLATELET VOLUME 11.7 fL (7.4-11.4); MONOCYTES # (AUTO) 0.6 10^3/uL (0.0-1.0); MONOCYTES % (AUTO) 3.3 %; NEUTROPHILS # (AUTO) 16.1 10^3/uL (1.5-6.6); NEUTROPHILS % (AUTO) 94.5 %; PLT - PLATELET COUNT 351 10^3/uL (130-450); RED BLOOD COUNT 2.75 10^6/uL (4.70-6.10); RED CELL DISTRIBUTION WIDTH 20.7 % (12.0-15.0); WHITE BLOOD COUNT 17.1 x10^3/uL (4.8-10.8)
[2021-01-05 12:49] LABS: ALBUMIN 1.7 g/dL (3.2-5.5); ALBUMIN/GLOBULIN RATIO 0.5 (1.0-2.2); BILIRUBIN,TOTAL 10.7 mg/dL (0.2-1.0); CALCIUM 10.6 mg/dL (8.5-10.3); CREATININE 1.8 mg/dL (0.6-1.2); MAGNESIUM 2.2 mg/dL (1.7-2.8); PHOSPHORUS 4.8 mg/dL (2.5-4.6); POTASSIUM 3.6 mmol/L (3.5-5.0); TOTAL PROTEIN 5.4 g/dL (6.7-8.2)
[2021-01-05 14:09] LABS: B. PARAPERTUSSIS- RESP PCR PAN NOT DETECTED; B. PERTUSSIS- RESP PCR PANEL NOT DETECTED; C. PNEUMONIAE- RESP PCR PANEL NOT DETECTED; CORONAVIRUS 229E-RESP PCR NOT DETECTED; CORONAVIRUS HKU1-RESP PCR NOT DETECTED; CORONAVIRUS NL63-RESP PCR NOT DETECTED; CORONAVIRUS OC43-RESP PCR NOT DETECTED; HUMAN METAPNEUMOVIRUS NOT DETECTED; INFLUENZA A- RESP PCR PANEL NOT DETECTED; INFLUENZA B - RESP PCR PANEL NOT DETECTED; M. PNEUMONIAE- RESP PCR PANEL NOT DETECTED; PARAINFLUENZA VIRUS 1 NOT DETECTED; PARAINFLUENZA VIRUS 2 NOT DETECTED; PARAINFLUENZA VIRUS 3 NOT DETECTED; PARAINFLUENZA VIRUS 4 NOT DETECTED; RHINOVIRUS/ENTEROVIRUS NOT DETECTED; RSV- RESP PCR PANEL NOT DETECTED; SARS-CoV-2 -RESP PCR PANEL NOT DETECTED
[2021-01-05] MEDS ORDERED: MORPHINE 2 MG/ML CARPUJECT IVP STA ×2 (14:21→20:04)
[2021-01-05] MEDS ORDERED: LORazepam 2 MG/ML VIAL IVP STA (14:21)
[2021-01-05] MEDS ORDERED: ONDANSETRON 4 MG/2 ML VIAL IVP STA (14:21)
--- NOTE | 2021-01-05 19:05 | ED Physician Documentation ---
History of Present Illness - Stated complaint Stated Complaint: WEAKNESS/FAILURE TO THRIVE - Chief complaint Chief Complaint: General - History obtained from History obtained from: Patient, Family - Additonal information Additional information: Patient is 65-year-old male presenting to the emergency department with generalized weakness, status post fall at home with inability to ambulate. 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 He is accompanied by girlfriend who is longtime transmission worker and food and drug inspector who reports that he has been getting progressively weaker for the last 1 to 2 days. States that he is ordinarily able to assist with transfers however he has been unable to perform any of these regular functions for the last 1 to 2 days. She reports that he had a "near stumble" and fall in the bathroom and that she was unable to help him rise which is what prompted her to call EMS this afternoon. He reports feeling generally weak and unwell but denies any fever, chills, head trauma, headache, blurred vision, double vision, chest pain, shortness of breath, abdominal pain, nausea, vomiting, diarrhea, constipation. Patient presents to the emergency department with POLST paperwork indicating that he is DNR limited treatment measures. Review of Systems Ten Systems: 10 systems reviewed and negative Constitutional: reports: Fatigue, Weight Loss. denies: Fever Eyes: denies: Loss of vision Ears: denies: Loss of hearing Nose: denies: Rhinorrhea / runny nose Throat: denies: Dental pain / toothache Cardiac: denies: Chest pain / pressure Respiratory: denies: Dyspnea GI: denies: Abdominal Pain, Nausea, Vomiting : denies: Dysuria Neurologic: reports: Generalized weakness. denies: Focal weakness, Numbness, Difficulty speaking, Syncope, Seizure, Confused Psychiatric: reports: Depressed. denies: Suicidal PD PAST MEDICAL HISTORY - Past Medical History Past Medical History: Yes Cardiovascular: Hypertension, High cholesterol, Coronary artery disease, Peripheral Vascular Disease, Angina Respiratory: COPD, Shortness of breath Neuro: None Endocrine/Autoimmune: None GI: None : None HEENT: None Psych: None Musculoskeletal: Chronic back pain Derm: None - Past Surgical History Past Surgical History: Yes General: Other Ortho: Other Cardiovascular: Coronary stent, Cardiac catheterization, Fempop bypass - Present Medications Home Medications: Ambulatory Orders Medication Instructions Recorded Confirmed Aspirin Chewable [[place] 1 tab PO DAILY 10/08/20 11/27/20 Aspirin] Atorvastatin [Lipitor] 40 mg PO DAILY PM 10/08/20 11/27/20 Losartan [Cozaar] 25 mg PO DAILY 10/08/20 11/27/20 Metoprolol Succinate [Toprol Xl] 25 mg PO DAILY 10/08/20 11/27/20 Ticagrelor [Brilinta] 90 mg PO BID 10/08/20 11/27/20 Ondansetron HCl [Zofran] 4 mg PO Q6HR PRN #30 tab 10/14/20 11/27/20 Prochlorperazine Maleate 10 mg PO Q6HR PRN #30 tab 10/14/20 11/27/20 [Compazine] HYDROcod/ACETAM 5/325 [[place] 5/325] 1 each PO Q6H PRN #30 tablet 10/22/20 11/27/20 Omeprazole 40 mg PO BID MDD x 1 week; then 11/14/20 11/27/20 daily dexAMETHasone [Decadron] 4 mg PO DAILY 11/14/20 11/27/20 Furosemide [Lasix] 20 mg PO DAILY #30 tablet 12/01/20 oxyCODONE [Roxicodone] 5 mg PO Q6H PRN #100 tablet 12/31/20 predniSONE [Deltasone] 1 tablet PO DAILY #30 tablet 12/31/20 - Allergies Allergies/Adverse Reactions: Allergies Allergy/AdvReac Type Severity Reaction Status Date / Time No Known Drug Allergies Allergy Verified 01/05/21 11:41 - Social History Does the pt smoke?: Yes Smoking Status: Current every day smoker Does the pt drink ETOH?: No Does the pt have substance abuse?: No - Immunizations Immunizations are current?: Yes - POLST Patient has POLST: No PD ED PE NORMAL - General General: Alert and oriented X 3 - HEENT HEENT: Atraumatic, PERRL, EOMI, Ears normal, Moist mucous membranes, Pharynx benign, Dentition benign, Other - Neck Neck: Supple, no meningeal sign, No bony TTP, No adenopathy, Thyroid normal, No JVD, No bruit - Cardiac Cardiac: Other (Cardiac, irregularly irregular rhythm) - Respiratory Respiratory: No respiratory distress, Other (Patient on 4 L nasal cannula) - Abdomen Abdomen: Normal bowel sounds, Soft, Non tender - Male Male : Deferred - Rectal Rectal: Deferred - Derm Derm: Other (Diffuse jaundice) - Extremities Extremities: No deformity - Neuro Neuro: Alert and oriented X 3, cotton acreage measurer 2-12 intact, No motor deficit, Normal speech Results - Vitals Vitals: Vital Signs - 24 hr 01/05/21 01/05/21 01/05/21 11:31 11:40 11:41 Temperature 36.6 C 36.4 C L Heart Rate 167 H 154 H Respiratory 35 H 30 H 34 H Rate Blood Pressure 80/52 L 85/52 L O2 Saturation 91 L 90 L 93 01/05/21 01/05/21 01/05/21 12:10 12:30 14:40 Temperature Heart Rate 163 H 174 H 106 H Respiratory 33 H 30 H 25 H Rate Blood Pressure 73/54 L 71/51 L 70/44 L O2 Saturation 94 98 96 01/05/21 01/05/21 16:00 18:00 Temperature Heart Rate 100 100 Respiratory 23 18 Rate Blood Pressure 93/58 L 68/49 L O2 Saturation 93 98 Oxygen O2 Source Room air - EKG (time done) 1137 Rate: Rate (enter#) (159) Rhythm: Atrial fibrillation [place]: Normal Intervals: Prolonged QT, QRS normal QRS: Normal Ischemia: Normal ST segments, Hyperacute T waves Compare to prior EKG: Changed from prior EKG, Other Computer interpretation: Agree with computer - Labs Labs: Laboratory Tests 01/05/21 01/05/21 01/05/21 11:49 11:49 11:49 WBC 17.1 H RBC 2.75 L Hgb 8.0 L Hct 24.7 L MCV 89.8 MCH 29.1 MCHC 32.4 RDW 20.7 H Plt Count 351 MPV 11.7 H Neut # (Auto) 16.1 H Lymph # (Auto) 0.1 L Morris # (Auto) 0.6 Eos # (Auto) 0.1 Baso # (Auto) 0.0 Absolute Nucleated RBC 0.00 Nucleated RBC % 0.0 Sodium 131 L Potassium 3.6 Chloride 96 L Carbon Dioxide 24 Anion Gap 11.0 BUN 73 H Creatinine 1.8 H Estimated GFR (MDRD) 38 L Glucose 84 Lactic Acid 1.8 Calcium 10.6 H Phosphorus 4.8 H Magnesium 2.2 Total Bilirubin 10.7 H AST 158 H ALT 336 H Alkaline Phosphatase 2144 H Total Creatine Kinase 27 Total Protein 5.4 L Albumin 1.7 L Globulin 3.7 Albumin/Globulin Ratio 0.5 L Lipase 23 Nasal Adenovirus (PCR) Nasal B. parapertussis DNA (PCR) Nasal Coronavir 229E PCR Nasal Coronavir HKU1 PCR Nasal Coronavir NL63 PCR Nasal Coronavir OC43 PCR Nasal Enterovir/Rhinovir PCR Nasal Influenza B PCR Nasal Influenza A PCR Nasal Parainfluen 1 PCR Nasal Parainfluen 2 PCR Nasal Parainfluen 3 PCR Nasal Parainfluen 4 PCR Nasal RSV (PCR) Nasal B.pertussis DNA PCR Nasal C.pneumoniae (PCR) Alexander Human Metapneumo PCR Nasal M.pneumoniae (PCR) Nasal SARS-CoV-2 (PCR) 01/05/21 12:53 WBC RBC Hgb Hct MCV MCH MCHC RDW Plt Count MPV Neut # (Auto) Lymph # (Auto) Morris # (Auto) Eos # (Auto) Baso # (Auto) Absolute Nucleated RBC Nucleated RBC % Sodium Potassium Chloride Carbon Dioxide Anion Gap BUN Creatinine Estimated GFR (MDRD) Glucose Lactic Acid Calcium Phosphorus Magnesium Total Bilirubin AST ALT Alkaline Phosphatase Total Creatine Kinase Total Protein Albumin Globulin Albumin/Globulin Ratio Lipase Nasal Adenovirus (PCR) NOT DETECTED Nasal B. parapertussis DNA (PCR) NOT DETECTED Nasal Coronavir 229E PCR NOT DETECTED Nasal Coronavir HKU1 PCR NOT DETECTED Nasal Coronavir NL63 PCR NOT DETECTED Nasal Coronavir OC43 PCR NOT DETECTED Nasal Enterovir/Rhinovir PCR NOT DETECTED Nasal Influenza B PCR NOT DETECTED Nasal Influenza A PCR NOT DETECTED Nasal Parainfluen 1 PCR NOT DETECTED Nasal Parainfluen 2 PCR NOT DETECTED Nasal Parainfluen 3 PCR NOT DETECTED Nasal Parainfluen 4 PCR NOT DETECTED Nasal RSV (PCR) NOT DETECTED Nasal B.pertussis DNA PCR NOT DETECTED Nasal C.pneumoniae (PCR) NOT DETECTED Alexander Human Metapneumo PCR NOT DETECTED Nasal M.pneumoniae (PCR) NOT DETECTED Nasal SARS-CoV-2 (PCR) NOT DETECTED PD MEDICAL DECISION MAKING - ED course Complexity details: reviewed results, d/w patient, d/w family, d/w data virtualization consultant ED course: Is a 65-year-old male presenting to the emergency department for generalized fatigue, inability to ambulate status post fall at home. 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 Patient arrived to the emergency department in atrial fibrillation with rapid ventricular response and with initial blood pressures in the 70s. Abs obtained in the emergency department demonstrated a significant leukocytosis as well asAs well as a mild downtrending hemoglobin, increase in total bilirubin, slight increase in chronic alkaline phosphatase levels.Had a long and detailed conversation with the patient as well as with the patient's girlfriend who is primary food and drug inspector and who was present at bedside about all of the above findings. Specifically I discussed what their overall goals for care were at this point in the patient's disease process and after considering options the patient and the patient's food and drug inspector both indicated that at this time he would like all of his care focused on his comfort rather than on any ongoing attempt to prolong his life. I did discuss his case with the hospitalist service who evaluated the patient however he was ultimately declined for hospitalization at our facility. At this time I will be signing him out to the oncoming physician, please see their documentat ion for further detail.
[2021-01-05 20:10] LABS: GLUCOSE, URINE (UA) NEGATIVE (NEGATIVE); KETONES,URINE (UA) NEGATIVE (NEGATIVE); LEUKOCYTE ESTERASE, URINE NEGATIVE (NEGATIVE); NITRITE,URINE NEGATIVE (NEGATIVE); OCCULT BLOOD,URINE NEGATIVE (NEGATIVE); PROTEIN,URINE TRACE mg/dL (NEGATIVE); UROBILINOGEN,URINE 0.2 (NORMAL) E.U./dL (NORMAL)
--- NOTE | 2021-01-05 20:13 | ED Physician Documentation ---
ED Addendum - Addendum Addendum: 01/05/21 20:[address] Hardy at shift change. This is a gentleman with end-stage cancer who has chosen comfort care. He was presented to Dr. Reynolds to for admission who declined noting that he is in comfort care. Discussed with patient and significant other. Offered to send him home with pain medication etc. and she does not feel like she can care for him at home. As such we are boarding him in the emergency department pending social work for disposition.
[2021-01-05 20:18] LABS: BILIRUBIN,URINE LARGE (NEGATIVE); CLARITY,URINE CLOUDY (CLEAR); ICTOTEST,URINE POSITIVE
[2021-01-05 20:19] LABS: AMORPHOUS SEDIMENT,UR Rare /LPF; BACTERIA,URINE Rare /HPF (None Seen); CASTS, URINE 0-2 Granular Casts /LPF; RBC,URINE 0-5 /HPF (0-5); SQUAMOUS EPITHELIAL CELL,UR RARE Squamous (<= Few)
[2021-01-06] MEDS: MORPHINE 2 MG/ML CARPUJECT IVP PRN ×2 (03:56→22:47)
--- NOTE | 2021-01-06 14:07 | ED Physician Documentation ---
ED Addendum - Addendum Addendum: 01/06/21 14:[address] Perera today, wondering if he might fit inpatient criteria, it looks like he does not still fit inpatient criteria. Social work working on a bed and does have a potential opening available with [facility] but probably will not be today.
[2021-01-07] MEDS: MORPHINE 2 MG/ML CARPUJECT IVP PRN ×4 (01:20→15:22)
[2021-01-07] MEDS ORDERED: MORPHINE 2 MG/ML CARPUJECT IVP STA (06:44)
[2021-01-07] MEDS: LORazepam 2 MG/ML VIAL IVP PRN ×2 (09:48→15:22)
--- NOTE | 2021-01-07 13:48 | ED Physician Documentation ---
ED Addendum - Addendum Addendum: Patient received as signout from off going physician, please see their documentation for further detail. Patient evaluated independently at bedside. Endorsed for some agitation. I did order for IV Ativan. Social work is continue to work towards placement and at this time he will be discharged to [facility]. 01/07/21 13:47
[2021-01-07 14:20] VITALS: BP 87/53
--- NOTE | 2021-01-09 08:53 | ED Physician Documentation ---
ED Addendum - Addendum Addendum: 01/09/21 08:52 Diagnoses: 1. Metastatic squamous cell carcinoma Disposition: [facility]
== END 2021-01-07 15:15 | disposition home or self-care (01) ==
LOC: EDUNIT# → ED 11:26
DX: D00.1 Carcinoma in situ of esophagus (principal); C79.9 Secondary malignant neoplasm of unspecified site; I10 Essential (primary) hypertension; Z51.5 Encounter for palliative care; I25.10 Atherosclerotic heart disease of native coronary artery without angina pectoris; Z95.5 Presence of coronary angioplasty implant and graft; Z79.82 Long term (current) use of aspirin; Z66 Do not resuscitate; I48.91 Unspecified atrial fibrillation; R94.31 Abnormal electrocardiogram [ECG] [EKG]; F17.200 Nicotine dependence, unspecified, uncomplicated; Z20.822 Contact with and (suspected) exposure to COVID-19
CPT/HCPCS: 36415; 80053; 81001; 82550; 83605; 83690; 83735; 84100; 85025; 87631; 93005; 96374; 96375; 96376; 99284; 99285; J2060; 0202U; 81003; 87086